=== PATIENT | male | born 1960 | race Caucasian/White ===

== ENCOUNTER 2022-01-26 10:43 | Inpatient (IN) | payer OTHER ==
[2022-01-26] MEDS ORDERED: ACETAMINOPHEN 325 MG TABLET (FP) PO PRN (11:11)
[2022-01-26] MEDS ORDERED: MAGNESIUM HYDROX 2400MG/30ML ORAL SUSPENSION 30 ML CUP PO PRN (11:11)
[2022-01-26] MEDS ORDERED: ONDANSETRON *ODT* 4 MG TABLET SL PRN (11:11)
[2022-01-26] MEDS ORDERED: DICYCLOMINE HCL 10 MG CAPSULE PO PRN (11:11)
[2022-01-26] MEDS ORDERED: METHOCARBAMOL 500 MG TABLET PO PRN (11:11)
[2022-01-26] MEDS ORDERED: diazePAM 5 MG TABLET PO PRN (11:11)
[2022-01-26] MEDS ORDERED: LOPERAMIDE HCL 2 MG CAPSULE PO PRN (11:11)
[2022-01-26] MEDS ORDERED: BENZOCAINE/MENTHOL (CHLORASEPTIC ) LOZENGE MM PRN (11:11)
[2022-01-26] MEDS ORDERED: MAGNESIUM CITRATE 300 ML BOTTLE PO PRN (11:11)
[2022-01-26] MEDS ORDERED: NICOTINE 10 MG CARTRIDGE (INHALER) IH PRN (11:11)
[2022-01-26] MEDS ORDERED: MAG HYDROX/AL HYDROX/SIMETH 30 ML UNIT-DOSE CUP PO PRN (11:11)
[2022-01-26] MEDS ORDERED: BISMUTH SUBSALICYLATE 262 MG/15 ML BTL PO PRN (11:11)
[2022-01-26 12:03] VITALS: BMI 21.0
[2022-01-26] MEDS ORDERED: MULTIVITAMINS (DAILY MVI) TABLET (FP) PO SCH (13:45)
[2022-01-26] MEDS: NICOTINE 7 MG/24 HOURS TOPICAL PATCH TD SCH (14:05)
[2022-01-26] MEDS: PRENATAL VITAMINS W/ FOLIC ACID TABLET (FP) PO SCH (14:05)
[2022-01-26] MEDS: hydrOXYzine PAMOATE 25 MG CAPSULE (FP) PO SCH ×3 (14:07→22:22)
[2022-01-26] MEDS: DIVALPROEX SODIUM 500 MG TABLET E.C. PO SCH ×4 (14:42→23:32)
[2022-01-26] MEDS: CLOPIDOGREL BISULFATE 75 MG TABLET (FP) PO SCH (14:42)
[2022-01-26] MEDS: ASPIRIN 81 MG CHEWABLE TABLETS PO SCH (14:42)
[2022-01-26] MEDS: METOPROLOL TARTRATE 25 MG TABLET (FP) PO SCH ×2 (14:42→22:18)
[2022-01-26 15:02] LABS: HEMATOCRIT 33.9 % (35.4-49); HEMOGLOBIN 11.8 GM/dL (11.7-16.9); MCH 37.4 pg (25.7-33.7); MCHC 34.7 g/dl (32.0-35.9); MEAN CELL VOLUME 107.7 fl (80-96); MEAN PLT VOLUME 7.9 fl (7.5-11.1); PLATELET COUNT 126 10^3/uL (134-434); RBC 3.15 M/mm3 (4.00-5.60); RDW 12.8 % (11.9-15.9); WHITE BLOOD COUNT 3.5 K/mm3 (4.0-10.0)
[2022-01-26 15:29] LABS: CREATININE 1.2 mg/dL (0.55-1.3)
[2022-01-26 15:30] LABS: BILIRUBIN,TOTAL 0.8 mg/dL (0.2-1)
[2022-01-26 15:31] LABS: TOT PROT 6.3 g/dl (6.4-8.2)
[2022-01-26 15:32] LABS: ALBUMIN 3.2 g/dl (3.4-5.0); BLOOD UREA NITROGEN 18.4 mg/dL (7-18); CALCIUM 9.1 mg/dL (8.5-10.1)
[2022-01-26] MEDS: FOLIC ACID 1 MG TABLET (FP) PO SCH (15:57)
[2022-01-26] MEDS: LOSARTAN POTASSIUM 50 MG TABLET PO SCH (15:57)
[2022-01-26] MEDS: THIAMINE HCL 100 MG TABLET (FP) PO SCH ×2 (15:58→22:21)
[2022-01-26] MEDS: MEMANTINE HCL 5 MG TABLET (UD) PO SCH ×2 (16:03→22:17)
[2022-01-26] MEDS: diazePAM 5 MG TABLET PO SCH ×2 (18:31→22:18)
[2022-01-26] MEDS ORDERED: MELATONIN 5 MG TABLETS PO SCH (22:00)
[2022-01-26] MEDS ORDERED: THIAMINE HCL 100 MG TABLET (FP) PO SCH (22:00)
[2022-01-26] MEDS: ATORVASTATIN CA 20 MG TABLET (FP) PO SCH (22:18)
[2022-01-26] MEDS: MIRTAZAPINE 15 MG TABLET (FP) PO SCH (22:18)
[2022-01-26] MEDS: DONEPEZIL HCL 10 MG TABLET (FP) PO SCH (22:19)
[2022-01-27] MEDS: hydrOXYzine PAMOATE 25 MG CAPSULE (FP) PO SCH (05:01)
[2022-01-27] MEDS: diazePAM 5 MG TABLET PO SCH ×4 (05:01→22:46)
[2022-01-27] MEDS: ASPIRIN 81 MG CHEWABLE TABLETS PO SCH (10:07)
[2022-01-27] MEDS: FOLIC ACID 1 MG TABLET (FP) PO SCH (10:07)
[2022-01-27] MEDS: PRENATAL VITAMINS W/ FOLIC ACID TABLET (FP) PO SCH (10:07)
[2022-01-27] MEDS: DIVALPROEX SODIUM 500 MG TABLET E.C. PO SCH ×3 (10:07→22:36)
[2022-01-27] MEDS: MEMANTINE HCL 5 MG TABLET (UD) PO SCH ×2 (10:07→22:37)
[2022-01-27] MEDS: CLOPIDOGREL BISULFATE 75 MG TABLET (FP) PO SCH (10:07)
[2022-01-27] MEDS: LOSARTAN POTASSIUM 50 MG TABLET PO SCH (10:07)
[2022-01-27] MEDS: METOPROLOL TARTRATE 25 MG TABLET (FP) PO SCH ×2 (10:07→22:37)
[2022-01-27] MEDS: ACETAMINOPHEN 325 MG TABLET (FP) PO PRN (10:09)
[2022-01-27] MEDS: NICOTINE 7 MG/24 HOURS TOPICAL PATCH TD SCH (10:10)
[2022-01-27] MEDS: THIAMINE HCL 100 MG TABLET (FP) PO SCH ×2 (10:10→22:37)
[2022-01-27] MEDS: DONEPEZIL HCL 10 MG TABLET (FP) PO SCH (22:36)
[2022-01-27] MEDS: ATORVASTATIN CA 20 MG TABLET (FP) PO SCH (22:37)
[2022-01-27] MEDS: MIRTAZAPINE 15 MG TABLET (FP) PO SCH (22:37)
[2022-01-28] MEDS: diazePAM 5 MG TABLET PO SCH ×3 (05:16→22:39)
[2022-01-28] MEDS: ACETAMINOPHEN 325 MG TABLET (FP) PO PRN ×2 (05:17→15:37)
[2022-01-28] MEDS: PRENATAL VITAMINS W/ FOLIC ACID TABLET (FP) PO SCH (10:13)
[2022-01-28] MEDS: DIVALPROEX SODIUM 500 MG TABLET E.C. PO SCH ×2 (10:13→22:10)
[2022-01-28] MEDS: MEMANTINE HCL 5 MG TABLET (UD) PO SCH ×2 (10:13→22:10)
[2022-01-28] MEDS: CLOPIDOGREL BISULFATE 75 MG TABLET (FP) PO SCH (10:13)
[2022-01-28] MEDS: FOLIC ACID 1 MG TABLET (FP) PO SCH (10:13)
[2022-01-28] MEDS: ASPIRIN 81 MG CHEWABLE TABLETS PO SCH (10:13)
[2022-01-28] MEDS: LOSARTAN POTASSIUM 50 MG TABLET PO SCH (10:13)
[2022-01-28] MEDS: THIAMINE HCL 100 MG TABLET (FP) PO SCH ×2 (10:14→22:10)
[2022-01-28] MEDS: NICOTINE 7 MG/24 HOURS TOPICAL PATCH TD SCH (10:14)
[2022-01-28] MEDS: METOPROLOL TARTRATE 25 MG TABLET (FP) PO SCH ×2 (10:15→22:11)
[2022-01-28 10:40] LABS: BLOOD UREA NITROGEN 18.3 mg/dL (7-18); CALCIUM 8.9 mg/dL (8.5-10.1)
[2022-01-28 10:44] LABS: CREATININE 0.8 mg/dL (0.55-1.3)
[2022-01-28] MEDS: IBUPROFEN 400 MG TABLET (FP) PO PRN (16:55)
[2022-01-28] MEDS: DONEPEZIL HCL 5 MG TABLET (FP) PO SCH (22:10)
[2022-01-28] MEDS: MIRTAZAPINE 15 MG TABLET (FP) PO SCH (22:10)
[2022-01-28] MEDS: ATORVASTATIN CA 20 MG TABLET (FP) PO SCH (22:10)
[2022-01-29 00:11] LABS: SARS-CoV-2 NAA Not Detected (Not Detected)
[2022-01-29] MEDS: diazePAM 5 MG TABLET PO SCH ×2 (05:11→17:48)
[2022-01-29] MEDS: DIVALPROEX SODIUM 500 MG TABLET E.C. PO SCH ×2 (10:11→21:27)
[2022-01-29] MEDS: LOSARTAN POTASSIUM 50 MG TABLET PO SCH (10:11)
[2022-01-29] MEDS: ASPIRIN 81 MG CHEWABLE TABLETS PO SCH (10:11)
[2022-01-29] MEDS: PRENATAL VITAMINS W/ FOLIC ACID TABLET (FP) PO SCH (10:11)
[2022-01-29] MEDS: METOPROLOL TARTRATE 25 MG TABLET (FP) PO SCH ×2 (10:12→21:27)
[2022-01-29] MEDS: CLOPIDOGREL BISULFATE 75 MG TABLET (FP) PO SCH (10:12)
[2022-01-29] MEDS: MEMANTINE HCL 5 MG TABLET (UD) PO SCH ×2 (10:12→21:27)
[2022-01-29] MEDS: FOLIC ACID 1 MG TABLET (FP) PO SCH (10:12)
[2022-01-29] MEDS: THIAMINE HCL 100 MG TABLET (FP) PO SCH ×2 (10:13→21:27)
[2022-01-29] MEDS: NICOTINE 7 MG/24 HOURS TOPICAL PATCH TD SCH (10:13)
[2022-01-29] MEDS: ACETAMINOPHEN 325 MG TABLET (FP) PO PRN (13:03)
[2022-01-29] MEDS: IBUPROFEN 400 MG TABLET (FP) PO PRN (17:51)
[2022-01-29] MEDS: DONEPEZIL HCL 5 MG TABLET (FP) PO SCH (21:27)
[2022-01-29] MEDS: MIRTAZAPINE 15 MG TABLET (FP) PO SCH (21:27)
[2022-01-29] MEDS: ATORVASTATIN CA 20 MG TABLET (FP) PO SCH (21:27)
[2022-01-30] MEDS ORDERED: diazePAM 5 MG TABLET PO ONE (06:00)
[2022-01-30] MEDS: DIVALPROEX SODIUM 500 MG TABLET E.C. PO SCH ×2 (10:28→21:30)
[2022-01-30] MEDS: METOPROLOL TARTRATE 25 MG TABLET (FP) PO SCH ×2 (10:28→21:30)
[2022-01-30] MEDS: CLOPIDOGREL BISULFATE 75 MG TABLET (FP) PO SCH (10:28)
[2022-01-30] MEDS: LOSARTAN POTASSIUM 50 MG TABLET PO SCH (10:28)
[2022-01-30] MEDS: ASPIRIN 81 MG CHEWABLE TABLETS PO SCH (10:28)
[2022-01-30] MEDS: PRENATAL VITAMINS W/ FOLIC ACID TABLET (FP) PO SCH (10:29)
[2022-01-30] MEDS: NICOTINE 7 MG/24 HOURS TOPICAL PATCH TD SCH (10:29)
[2022-01-30] MEDS: MEMANTINE HCL 5 MG TABLET (UD) PO SCH ×2 (10:29→21:30)
[2022-01-30] MEDS: FOLIC ACID 1 MG TABLET (FP) PO SCH (10:29)
[2022-01-30] MEDS: THIAMINE HCL 100 MG TABLET (FP) PO SCH ×2 (10:30→21:30)
[2022-01-30] MEDS ORDERED: LOPERAMIDE HCL 2 MG CAPSULE PO ONE (11:50)
[2022-01-30] MEDS: DONEPEZIL HCL 5 MG TABLET (FP) PO SCH (21:30)
[2022-01-30] MEDS: ATORVASTATIN CA 20 MG TABLET (FP) PO SCH (21:30)
[2022-01-30] MEDS: MIRTAZAPINE 15 MG TABLET (FP) PO SCH (21:30)
[2022-01-31 05:56] VITALS: TEMP 96.8
[2022-01-31 09:15] VITALS: BP 124/61; PULSE 68
[2022-01-31] MEDS: MEMANTINE HCL 5 MG TABLET (UD) PO SCH (10:47)
[2022-01-31] MEDS: PRENATAL VITAMINS W/ FOLIC ACID TABLET (FP) PO SCH (10:47)
[2022-01-31] MEDS: FOLIC ACID 1 MG TABLET (FP) PO SCH (10:47)
[2022-01-31] MEDS: METOPROLOL TARTRATE 25 MG TABLET (FP) PO SCH (10:47)
[2022-01-31] MEDS: DIVALPROEX SODIUM 500 MG TABLET E.C. PO SCH (10:47)
[2022-01-31] MEDS: ASPIRIN 81 MG CHEWABLE TABLETS PO SCH (10:47)
[2022-01-31] MEDS: CLOPIDOGREL BISULFATE 75 MG TABLET (FP) PO SCH (10:47)
[2022-01-31] MEDS: NICOTINE 7 MG/24 HOURS TOPICAL PATCH TD SCH (10:48)
[2022-01-31] MEDS: LOSARTAN POTASSIUM 50 MG TABLET PO SCH (10:48)
[2022-01-31] MEDS: THIAMINE HCL 100 MG TABLET (FP) PO SCH (10:50)
== END 2022-01-31 11:50 | disposition home or self-care (01) | DRG 897 ==
LOC: YASAS 10:43 → Y6N 12:26
PROVIDERS: ADMIT Allergy & Immunology; ATTEND Surgery
PROC: HZ2ZZZZ Detoxification Services for Substance Abuse Treatment (ICD-10-PCS; principal; 2022-01-26)
DX: F10.230 Alcohol dependence with withdrawal, uncomplicated (principal); F01.50 Vascular dementia, unspecified severity, without behavioral disturbance, psychotic disturbance, mood disturbance, and anxiety; F31.9 Bipolar disorder, unspecified; G40.909 Epilepsy, unspecified, not intractable, without status epilepticus; E78.00 Pure hypercholesterolemia, unspecified; K21.9 Gastro-esophageal reflux disease without esophagitis; I10 Essential (primary) hypertension; Z88.0 Allergy status to penicillin
CPT/HCPCS: 36415; 80048; 80053; 83036; 85027; 86780; 87811; 93005; 93010; C9803-CS; U0003; U0005

== ENCOUNTER 2023-01-02 15:16 | Inpatient (IN) | payer OTHER ==
[2023-01-02] MEDS ORDERED: SODIUM CHLORIDE 0.9% 500 ML INFUS.BAG IV ONE (15:38)
[2023-01-02] MEDS ORDERED: ACETAMINOPHEN 1000 MG/100 ML BAG IVPB ONE (15:38)
[2023-01-02 15:42] VITALS: BMI 18.3
[2023-01-02] MEDS ORDERED: SODIUM CHLORIDE 1,837 ML IV ONE (15:43)
[2023-01-02] MEDS ORDERED: VANCOMYCIN 1 GM in D5W (PRE-DOCKED) 1,000 MG/250 ML (RESTRICTED TO ID ONLY IVPB ONE (15:45)
[2023-01-02] MEDS ORDERED: CEFEPIME HCL/D5W 2 GM/50 ML BAG IVPB ONE (15:45)
[2023-01-02] MEDS ORDERED: ACETAMINOPHEN INJECTION 100 ML IVPB ONE (16:23)
[2023-01-02] MEDS ORDERED: CEFEPIME 2 GM/100 ML BAG IVPB ONE (16:23)
[2023-01-02] MEDS ORDERED: PIPERACILLIN/TAZOB 4.5 GM 4.5 GM in DEXTROSE 5%-WATER 100 ML IVPB ONE (16:24)
[2023-01-02 17:49] LABS: VENOUS BASE EXCESS 1.3 mmol/L (-2-2); VENOUS O2 SATURATION 25.5 % (70-80); VENOUS PCO2 48.7 mmHg (38-52); VENOUS PH 7.36 (7.310-7.410)
[2023-01-02 17:51] LABS: BASO % 0.1 % (0-2.0); HEMATOCRIT 18.1 % (35.4-49); LYMPH % 6.6 % (8-40); MCH 31.1 pg (25.7-33.7); MCHC 33.6 g/dl (32.0-35.9); MEAN CELL VOLUME 92.7 fl (80-96); NEUT % 89.3 % (42.8-82.8); PLATELET COUNT 224 10^3/uL (134-434); RBC 1.95 M/mm3 (4.00-5.60); WHITE BLOOD COUNT 10.8 K/mm3 (4.0-10.0)
[2023-01-02 17:55] LABS: HEMOGLOBIN 6.1 GM/dL (11.7-16.9)
[2023-01-02 18:03] LABS: ACTIVATED PTT 32.6 SECONDS (25.2-36.5); INR 1.72 (0.83-1.09); PROTHROMBIN TIME (PATIENT) 19.8 SEC (9.7-13.0)
[2023-01-02 18:11] LABS: POTASSIUM 3.6 mmol/L (3.5-5.1)
[2023-01-02 18:17] LABS: CREATININE 0.5 mg/dL (0.55-1.3)
[2023-01-02 18:18] LABS: BILIRUBIN,TOTAL 0.2 mg/dL (0.2-1)
[2023-01-02 18:19] LABS: TOT PROT 6.7 g/dl (6.4-8.2)
[2023-01-02 18:22] LABS: LACTIC ACID 2.6 mmol/L (0.4-2.0)
[2023-01-02] MEDS ORDERED: ACETAMINOPHEN 650 MG/20.3 ML ORAL SOLUTION (CUPS) PO PRN (19:28)
[2023-01-02] MEDS ORDERED: ALBUTEROL SO4 2.5/IPRATROPIUM 0.5 INH SOL 3 ML VIAL.NEB. NEB PRN (19:38)
[2023-01-02] MEDS: QUEtiapine FUMARATE 100 MG TABLET (FP) PO SCH (23:40)
[2023-01-02] MEDS: METOPROLOL TARTRATE 25 MG TABLET (FP) PO SCH (23:40)
[2023-01-02] MEDS: MEMANTINE HCL 5 MG TABLET (UD) PO SCH (23:40)
[2023-01-02] MEDS: MIRTAZAPINE 15 MG TABLET (FP) PO SCH (23:40)
[2023-01-02] MEDS: ATORVASTATIN CA 20 MG TABLET (FP) PO SCH (23:40)
[2023-01-02] MEDS: DIVALPROEX SODIUM 500 MG TABLET E.C. PO SCH (23:51)
[2023-01-03] MEDS: PIPERACILLIN/TAZOB 3.375 GM 3.375 GM in DEXTROSE 5%-WATER - 50 ML IVPB SCH ×3 (02:24→15:12)
[2023-01-03 08:49] LABS: BASO % 0.2 % (0-2.0); HEMATOCRIT 19.3 % (35.4-49); LYMPH % 13.1 % (8-40); MCH 31.6 pg (25.7-33.7); MCHC 34.2 g/dl (32.0-35.9); MEAN CELL VOLUME 92.4 fl (80-96); MEAN PLT VOLUME 7.9 fl (7.5-11.1); MONO % 2.7 % (3.8-10.2); PLATELET COUNT 245 10^3/uL (134-434); RBC 2.09 M/mm3 (4.00-5.60); RDW 15.4 % (11.9-15.9); WHITE BLOOD COUNT 8.1 K/mm3 (4.0-10.0)
[2023-01-03 08:58] LABS: CHLORIDE 110 mmol/L (98-107); POTASSIUM 3.9 mmol/L (3.5-5.1); SODIUM 141 mmol/L (136-145)
[2023-01-03 09:02] LABS: BLOOD UREA NITROGEN 17.3 mg/dL (7-18); CALCIUM 7.9 mg/dL (8.5-10.1)
[2023-01-03 09:03] LABS: ANION GAP 7 MMOL/L (8-16); CO2 24 mmol/L (21-32)
[2023-01-03 09:05] LABS: CREATININE 0.4 mg/dL (0.55-1.3); SGOT/AST 23 U/L (15-37); SGPT/ALT 11 U/L (13-61)
[2023-01-03 09:07] LABS: BILIRUBIN,TOTAL 0.7 mg/dL (0.2-1); TOT PROT 7.3 g/dl (6.4-8.2)
[2023-01-03 09:08] LABS: ALK PHOS 57 U/L (45-117)
[2023-01-03 09:14] LABS: GLUCOSE,RANDOM 48 mg/dL (74-106)
[2023-01-03 09:15] LABS: HEMOGLOBIN 6.6 GM/dL (11.7-16.9)
[2023-01-03] MEDS: DIVALPROEX SODIUM 500 MG TABLET E.C. PO SCH ×2 (09:32→23:03)
[2023-01-03] MEDS: MEMANTINE HCL 5 MG TABLET (UD) PO SCH ×2 (09:32→23:03)
[2023-01-03] MEDS: METOPROLOL TARTRATE 25 MG TABLET (FP) PO SCH ×2 (09:32→23:03)
[2023-01-03] MEDS: LOSARTAN POTASSIUM 50 MG TABLET PO SCH (09:32)
[2023-01-03] MEDS ORDERED: FUROSEMIDE 40 MG/4 ML INJECTABLE VIAL IVPUSH SCH (10:39)
[2023-01-03 13:33] LABS: TOTAL IRON BINDING CAPACITY 72 ug/dL (250-450)
[2023-01-03 13:34] LABS: IRON SERUM 21 ug/dL (50-175)
[2023-01-03] MEDS: CEFTRIAXONE 2 GM in DEXTROSE 5%-WATER 100 ML IVPB SCH (16:01)
[2023-01-03] MEDS: AZITHROMYCIN IVPB 500 MG/250 ML BAG IVPB SCH (16:49)
[2023-01-03 22:10] LABS: EPI CELLS >36 /uL (0-25.1); HYALINE CASTS 8 /uL (0-3.1); URINE APPEARANCE CLOUDY; URINE BILIRUBIN NEGATIVE (NEGATIVE); URINE COLOR YELLOW; URINE GLUCOSE (UA) NEGATIVE (NEGATIVE); URINE KETONE NEGATIVE (NEGATIVE); URINE LEUK ESTERASE NEGATIVE (NEGATIVE); URINE NITRITE NEGATIVE (NEGATIVE); URINE PROTEIN 1+ (NEGATIVE); URINE UROBILINOGEN 0.2 mg/dL (0.2-1.0)
[2023-01-03] MEDS: MIRTAZAPINE 15 MG TABLET (FP) PO SCH (23:03)
[2023-01-03] MEDS: ATORVASTATIN CA 20 MG TABLET (FP) PO SCH (23:03)
[2023-01-03] MEDS: QUEtiapine FUMARATE 100 MG TABLET (FP) PO SCH (23:03)
[2023-01-03 23:43] LABS: URINE RBC 69.6 /uL (0-23.9)
[2023-01-03 23:44] LABS: URINE BACTERIA 9.9 /uL (0-1359); URINE WBC 111.1 /uL (0-25.8)
[2023-01-04] MEDS: CEFTRIAXONE 2 GM in DEXTROSE 5%-WATER 100 ML IVPB SCH (09:58)
[2023-01-04] MEDS: METOPROLOL TARTRATE 25 MG TABLET (FP) PO SCH ×3 (10:03→22:52)
[2023-01-04] MEDS: DIVALPROEX SODIUM 500 MG TABLET E.C. PO SCH ×2 (10:03→22:50)
[2023-01-04] MEDS: AZITHROMYCIN IVPB 500 MG/250 ML BAG IVPB SCH (10:03)
[2023-01-04] MEDS: PANTOPRAZOLE 40 MG TABLET PO SCH (10:03)
[2023-01-04] MEDS: LOSARTAN POTASSIUM 50 MG TABLET PO SCH (10:03)
[2023-01-04] MEDS: MEMANTINE HCL 5 MG TABLET (UD) PO SCH ×2 (10:03→22:50)
[2023-01-04] MEDS: CLINDAMYCIN 600MG PREMIX IVPB 600 MG/50 ML BAG IVPB SCH (17:58)
[2023-01-04] MEDS: QUEtiapine FUMARATE 100 MG TABLET (FP) PO SCH (22:50)
[2023-01-04] MEDS: MIRTAZAPINE 15 MG TABLET (FP) PO SCH (22:50)
[2023-01-04] MEDS: ATORVASTATIN CA 20 MG TABLET (FP) PO SCH (22:51)
[2023-01-05] MEDS: CLINDAMYCIN 600MG PREMIX IVPB 600 MG/50 ML BAG IVPB SCH ×3 (01:06→17:00)
[2023-01-05 08:06] LABS: POTASSIUM 3.5 mmol/L (3.5-5.1)
[2023-01-05 08:12] LABS: BASO % 0.1 % (0-2.0); CALCIUM 8.1 mg/dL (8.5-10.1); HEMOGLOBIN 8.7 GM/dL (11.7-16.9); LYMPH % 10.9 % (8-40); MCHC 34.6 g/dl (32.0-35.9); MEAN CELL VOLUME 89.6 fl (80-96); MEAN PLT VOLUME 7.3 fl (7.5-11.1); PLATELET COUNT 186 10^3/uL (134-434); RBC 2.79 M/mm3 (4.00-5.60); RDW 15.5 % (11.9-15.9); WHITE BLOOD COUNT 9.4 K/mm3 (4.0-10.0)
[2023-01-05 08:17] LABS: CREATININE 1.9 mg/dL (0.55-1.3)
[2023-01-05 08:19] LABS: TOT PROT 6.4 g/dl (6.4-8.2)
[2023-01-05 08:22] LABS: BILIRUBIN,TOTAL 0.3 mg/dL (0.2-1)
[2023-01-05 08:59] LABS: ALBUMIN 1.5 g/dl (3.4-5.0); BLOOD UREA NITROGEN 43.2 mg/dL (7-18)
[2023-01-05] MEDS: CEFTRIAXONE 2 GM in DEXTROSE 5%-WATER 100 ML IVPB SCH (09:15)
[2023-01-05 10:09] LABS: MYCOPLASMA PNEUMONIAE,IG G AB <100 U/mL (0-99); MYCOPLASMA PNEUMONIAE,IGM AB <770 U/mL (0-769)
[2023-01-05] MEDS: PANTOPRAZOLE 40 MG TABLET PO SCH (10:14)
[2023-01-05] MEDS: LOSARTAN POTASSIUM 50 MG TABLET PO SCH (10:14)
[2023-01-05] MEDS: METOPROLOL TARTRATE 25 MG TABLET (FP) PO SCH ×2 (10:14→21:34)
[2023-01-05] MEDS: DIVALPROEX SODIUM 500 MG TABLET E.C. PO SCH ×2 (11:45→21:33)
[2023-01-05] MEDS: MEMANTINE HCL 5 MG TABLET (UD) PO SCH ×2 (11:46→21:34)
[2023-01-05] MEDS: ACETYLCYSTEINE 20% 200MG/ML 4 ML VIAL *FOR ORAL / INH USE ONLY NEB SCH ×2 (15:17→20:22)
[2023-01-05] MEDS: ALBUTEROL SO4 0.083% IH SOL 2.5 MG/3 ML VIAL.NEB. NEB SCH ×2 (15:18→20:22)
[2023-01-05] MEDS: ATORVASTATIN CA 20 MG TABLET (FP) PO SCH (21:33)
[2023-01-05] MEDS: QUEtiapine FUMARATE 100 MG TABLET (FP) PO SCH (21:35)
[2023-01-05] MEDS: MIRTAZAPINE 15 MG TABLET (FP) PO SCH (21:35)
[2023-01-06] MEDS: CLINDAMYCIN 600MG PREMIX IVPB 600 MG/50 ML BAG IVPB SCH ×3 (01:40→18:14)
[2023-01-06 07:59] LABS: CHLORIDE 111 mmol/L (98-107); SODIUM 142 mmol/L (136-145)
[2023-01-06 08:09] LABS: CALCIUM 7.9 mg/dL (8.5-10.1)
[2023-01-06 08:10] LABS: CO2 26 mmol/L (21-32); GLUCOSE,RANDOM 81 mg/dL (74-106)
[2023-01-06 08:12] LABS: SGPT/ALT 7 U/L (13-61)
[2023-01-06 08:13] LABS: CREATININE 0.5 mg/dL (0.55-1.3); SGOT/AST 13 U/L (15-37)
[2023-01-06 08:14] LABS: BASO % 0.1 % (0-2.0); BILIRUBIN,TOTAL 0.2 mg/dL (0.2-1); HEMOGLOBIN 7.6 GM/dL (11.7-16.9); LYMPH % 12.4 % (8-40); MCHC 34.4 g/dl (32.0-35.9); MEAN PLT VOLUME 7.4 fl (7.5-11.1); MONO % 5.2 % (3.8-10.2); NEUT % 82.3 % (42.8-82.8); PLATELET COUNT 169 10^3/uL (134-434); RBC 2.44 M/mm3 (4.00-5.60); RDW 15.3 % (11.9-15.9); TOT PROT 6.2 g/dl (6.4-8.2); WHITE BLOOD COUNT 6.4 K/mm3 (4.0-10.0)
[2023-01-06 08:15] LABS: ALK PHOS 44 U/L (45-117)
[2023-01-06 08:18] LABS: ALBUMIN 0.9 g/dl (3.4-5.0); ANION GAP 5 MMOL/L (8-16); BLOOD UREA NITROGEN 13.1 mg/dL (7-18); POTASSIUM 2.9 mmol/L (3.5-5.1)
[2023-01-06] MEDS: ACETYLCYSTEINE 20% 200MG/ML 4 ML VIAL *FOR ORAL / INH USE ONLY NEB SCH ×4 (09:35→20:40)
[2023-01-06] MEDS: ALBUTEROL SO4 0.083% IH SOL 2.5 MG/3 ML VIAL.NEB. NEB SCH ×4 (09:36→20:40)
[2023-01-06] MEDS: CEFTRIAXONE 2 GM in DEXTROSE 5%-WATER 100 ML IVPB SCH (09:59)
[2023-01-06] MEDS: AMINO ACIDS/PROTEIN HYDROLYS 30 ML LIQUID.PKT PO SCH ×2 (09:59→17:15)
[2023-01-06] MEDS: METOPROLOL TARTRATE 25 MG TABLET (FP) PO SCH ×2 (10:00→21:54)
[2023-01-06] MEDS: PANTOPRAZOLE 40 MG TABLET PO SCH (10:00)
[2023-01-06] MEDS: LOSARTAN POTASSIUM 50 MG TABLET PO SCH (10:00)
[2023-01-06] MEDS: MEMANTINE HCL 5 MG TABLET (UD) PO SCH ×2 (10:00→21:54)
[2023-01-06] MEDS: DIVALPROEX SODIUM 500 MG TABLET E.C. PO SCH ×2 (10:00→21:54)
[2023-01-06] MEDS: KCL 10 MEQ IVPB 10 MEQ/100 ML INFUS.BAG IVPB SCH ×2 (10:48→14:04)
[2023-01-06] MEDS ORDERED: KCL 10 MEQ IVPB 10 MEQ/100 ML INFUS.BAG IVPB SCH (12:15)
[2023-01-06] MEDS ORDERED: POTASSIUM CHLORIDE ORAL LIQUID 20 MEQ/15 ML PO ONE (13:07)
[2023-01-06] MEDS ORDERED: POTASSIUM CHLORIDE TABS 20 MEQ TABLET.ER (FP) PO ONE (13:55)
[2023-01-06] MEDS: ATORVASTATIN CA 20 MG TABLET (FP) PO SCH (21:54)
[2023-01-06] MEDS: QUEtiapine FUMARATE 100 MG TABLET (FP) PO SCH (21:54)
[2023-01-06] MEDS: MIRTAZAPINE 15 MG TABLET (FP) PO SCH (21:54)
[2023-01-07] MEDS: CLINDAMYCIN 600MG PREMIX IVPB 600 MG/50 ML BAG IVPB SCH ×3 (01:48→17:18)
[2023-01-07 07:37] LABS: HEMOGLOBIN 8.6 GM/dL (11.7-16.9); MCH 31.3 pg (25.7-33.7); MCHC 34.4 g/dl (32.0-35.9); MEAN CELL VOLUME 90.9 fl (80-96); MEAN PLT VOLUME 8.2 fl (7.5-11.1); PLATELET COUNT 165 10^3/uL (134-434); RBC 2.75 M/mm3 (4.00-5.60); RDW 15.1 % (11.9-15.9); WHITE BLOOD COUNT 4.4 K/mm3 (4.0-10.0)
[2023-01-07 07:58] LABS: POTASSIUM 4.5 mmol/L (3.5-5.1)
[2023-01-07 08:06] LABS: ALBUMIN 1.1 g/dl (3.4-5.0); BLOOD UREA NITROGEN 15.1 mg/dL (7-18); CALCIUM 8.1 mg/dL (8.5-10.1); MAGNESIUM 1.6 mg/dL (1.8-2.4)
[2023-01-07 08:09] LABS: CREATININE 0.4 mg/dL (0.55-1.3)
[2023-01-07 08:11] LABS: BILIRUBIN,TOTAL 0.4 mg/dL (0.2-1)
[2023-01-07] MEDS: ACETYLCYSTEINE 20% 200MG/ML 4 ML VIAL *FOR ORAL / INH USE ONLY NEB SCH ×4 (08:45→20:41)
[2023-01-07] MEDS: ALBUTEROL SO4 0.083% IH SOL 2.5 MG/3 ML VIAL.NEB. NEB SCH ×4 (08:45→20:41)
[2023-01-07 10:03] LABS: ANISOCYTOSIS 0; MACROCYTOSIS 0
[2023-01-07] MEDS: CEFTRIAXONE 2 GM in DEXTROSE 5%-WATER 100 ML IVPB SCH (10:04)
[2023-01-07] MEDS: AMINO ACIDS/PROTEIN HYDROLYS 30 ML LIQUID.PKT PO SCH ×2 (10:04→17:18)
[2023-01-07] MEDS: METOPROLOL TARTRATE 25 MG TABLET (FP) PO SCH ×2 (10:05→21:47)
[2023-01-07] MEDS: LOSARTAN POTASSIUM 50 MG TABLET PO SCH (10:05)
[2023-01-07] MEDS: PANTOPRAZOLE 40 MG TABLET PO SCH (10:05)
[2023-01-07] MEDS: MEMANTINE HCL 5 MG TABLET (UD) PO SCH ×2 (10:06→21:47)
[2023-01-07] MEDS: DIVALPROEX SODIUM 500 MG TABLET E.C. PO SCH ×2 (10:06→21:46)
[2023-01-07] MEDS ORDERED: MAGNESIUM 2GM/50ML STERILE WATER IVPB IVPB ONE (11:18)
[2023-01-07] MEDS ORDERED: FAT EMULSION/OLIVE/SOY (CLINOLIPID) 250 ML EMULSION IV SCH (11:21)
[2023-01-07] MEDS: AMINO ACIDS 4.25%/D5W 1,000 ML IV SCH (14:05)
[2023-01-07] MEDS: FAT EMULSION/OLIVE/SOY/PHOSPHO 250 ML IV SCH (21:46)
[2023-01-07] MEDS: ATORVASTATIN CA 20 MG TABLET (FP) PO SCH (21:46)
[2023-01-07] MEDS: MAGNESIUM OXIDE 400 MG TABLET (FP) PO SCH (21:47)
[2023-01-07] MEDS: MIRTAZAPINE 15 MG TABLET (FP) PO SCH (21:47)
[2023-01-07] MEDS: QUEtiapine FUMARATE 100 MG TABLET (FP) PO SCH (21:48)
[2023-01-08] MEDS: CLINDAMYCIN 600MG PREMIX IVPB 600 MG/50 ML BAG IVPB SCH ×3 (02:04→17:20)
[2023-01-08 07:38] LABS: BASO % 0.1 % (0-2.0); EOS % 0.1 % (0-4.5); HEMATOCRIT 19.9 % (35.4-49); LYMPH % 13.8 % (8-40); MCH 31.3 pg (25.7-33.7); MCHC 34.9 g/dl (32.0-35.9); MEAN CELL VOLUME 89.5 fl (80-96); MEAN PLT VOLUME 7.7 fl (7.5-11.1); MONO % 6.5 % (3.8-10.2); NEUT % 79.5 % (42.8-82.8); PLATELET COUNT 147 10^3/uL (134-434); RBC 2.23 M/mm3 (4.00-5.60); RDW 15.2 % (11.9-15.9)
[2023-01-08 07:47] LABS: POTASSIUM 3.3 mmol/L (3.5-5.1)
[2023-01-08 07:50] LABS: ALBUMIN 0.9 g/dl (3.4-5.0); CALCIUM 7.5 mg/dL (8.5-10.1)
[2023-01-08 07:51] LABS: BLOOD UREA NITROGEN 13.9 mg/dL (7-18); MAGNESIUM 1.6 mg/dL (1.8-2.4)
[2023-01-08 07:54] LABS: CREATININE 0.4 mg/dL (0.55-1.3)
[2023-01-08] MEDS: ALBUTEROL SO4 0.083% IH SOL 2.5 MG/3 ML VIAL.NEB. NEB SCH ×4 (07:55→20:05)
[2023-01-08] MEDS: ACETYLCYSTEINE 20% 200MG/ML 4 ML VIAL *FOR ORAL / INH USE ONLY NEB SCH ×4 (07:55→20:05)
[2023-01-08 07:56] LABS: BILIRUBIN,TOTAL 0.2 mg/dL (0.2-1); TOT PROT 6.4 g/dl (6.4-8.2)
[2023-01-08] MEDS: AMINO ACIDS/PROTEIN HYDROLYS 30 ML LIQUID.PKT PO SCH ×2 (09:06→17:20)
[2023-01-08] MEDS: CEFTRIAXONE 2 GM in DEXTROSE 5%-WATER 100 ML IVPB SCH (09:08)
[2023-01-08] MEDS: MEMANTINE HCL 5 MG TABLET (UD) PO SCH ×2 (09:09→21:41)
[2023-01-08] MEDS: DIVALPROEX SODIUM 500 MG TABLET E.C. PO SCH ×2 (09:09→21:40)
[2023-01-08] MEDS: MAGNESIUM OXIDE 400 MG TABLET (FP) PO SCH ×2 (09:09→21:41)
[2023-01-08] MEDS: LOSARTAN POTASSIUM 50 MG TABLET PO SCH (09:10)
[2023-01-08] MEDS: METOPROLOL TARTRATE 25 MG TABLET (FP) PO SCH ×2 (09:10→21:41)
[2023-01-08] MEDS: PANTOPRAZOLE 40 MG TABLET PO SCH (09:10)
[2023-01-08] MEDS: KCL 10 MEQ IVPB 10 MEQ/100 ML INFUS.BAG IVPB SCH ×2 (10:42→10:43)
[2023-01-08] MEDS: AMINO ACIDS 4.25%/D5W 1,000 ML IV SCH (19:25)
[2023-01-08] MEDS: FAT EMULSION/OLIVE/SOY/PHOSPHO 250 ML IV SCH (21:39)
[2023-01-08] MEDS: ATORVASTATIN CA 20 MG TABLET (FP) PO SCH (21:41)
[2023-01-08] MEDS: MIRTAZAPINE 15 MG TABLET (FP) PO SCH (21:42)
[2023-01-08] MEDS: QUEtiapine FUMARATE 100 MG TABLET (FP) PO SCH (21:42)
[2023-01-09] MEDS: CLINDAMYCIN 600MG PREMIX IVPB 600 MG/50 ML BAG IVPB SCH ×3 (01:22→17:41)
[2023-01-09] MEDS: ALBUTEROL SO4 0.083% IH SOL 2.5 MG/3 ML VIAL.NEB. NEB SCH ×4 (07:45→19:55)
[2023-01-09] MEDS: ACETYLCYSTEINE 20% 200MG/ML 4 ML VIAL *FOR ORAL / INH USE ONLY NEB SCH ×4 (07:45→19:55)
[2023-01-09 07:50] LABS: BASO % 0.2 % (0-2.0); EOS % 0.2 % (0-4.5); HEMATOCRIT 19.9 % (35.4-49); HEMOGLOBIN 7.2 GM/dL (11.7-16.9); LYMPH % 13.4 % (8-40); MCH 32.3 pg (25.7-33.7); MCHC 36.3 g/dl (32.0-35.9); MEAN PLT VOLUME 7.7 fl (7.5-11.1); MONO % 5.3 % (3.8-10.2); NEUT % 80.9 % (42.8-82.8); PLATELET COUNT 150 10^3/uL (134-434); RBC 2.23 M/mm3 (4.00-5.60); RDW 15.2 % (11.9-15.9); WHITE BLOOD COUNT 5.2 K/mm3 (4.0-10.0)
[2023-01-09 08:03] LABS: POTASSIUM 3.2 mmol/L (3.5-5.1)
[2023-01-09 08:09] LABS: CALCIUM 7.7 mg/dL (8.5-10.1)
[2023-01-09 08:10] LABS: BLOOD UREA NITROGEN 11.3 mg/dL (7-18)
[2023-01-09 08:12] LABS: CREATININE 0.4 mg/dL (0.55-1.3)
[2023-01-09 08:14] LABS: BILIRUBIN,TOTAL 0.4 mg/dL (0.2-1); TOT PROT 6.5 g/dl (6.4-8.2)
[2023-01-09] MEDS: AMINO ACIDS/PROTEIN HYDROLYS 30 ML LIQUID.PKT PO SCH ×2 (08:35→17:41)
[2023-01-09] MEDS: MEMANTINE HCL 5 MG TABLET (UD) PO SCH ×2 (09:39→22:12)
[2023-01-09] MEDS: METOPROLOL TARTRATE 25 MG TABLET (FP) PO SCH ×2 (09:40→22:13)
[2023-01-09] MEDS: LOSARTAN POTASSIUM 50 MG TABLET PO SCH (09:40)
[2023-01-09] MEDS: MAGNESIUM OXIDE 400 MG TABLET (FP) PO SCH ×2 (09:40→22:12)
[2023-01-09] MEDS: PANTOPRAZOLE 40 MG TABLET PO SCH (09:40)
[2023-01-09] MEDS: DIVALPROEX SODIUM 500 MG TABLET E.C. PO SCH ×2 (09:41→22:12)
[2023-01-09] MEDS: CEFTRIAXONE 2 GM in DEXTROSE 5%-WATER 100 ML IVPB SCH (10:01)
[2023-01-09] MEDS ORDERED: POTASSIUM CHLORIDE TABS 20 MEQ TABLET.ER (FP) PO ONE (12:25)
[2023-01-09] MEDS ORDERED: ALTEPLASE (CATHFLO) 2 MG/2 ML VIAL IX SCH (12:45)
[2023-01-09] MEDS: ALTEPLASE (CATHFLO) 2 MG/2 ML VIAL IX SCH ×2 (13:23→22:47)
[2023-01-09] MEDS: AMINO ACIDS 4.25%/D5W 1,000 ML IV SCH (17:42)
[2023-01-09] MEDS: FAT EMULSION/OLIVE/SOY/PHOSPHO 250 ML IV SCH (22:11)
[2023-01-09] MEDS: QUEtiapine FUMARATE 100 MG TABLET (FP) PO SCH (22:12)
[2023-01-09] MEDS: MIRTAZAPINE 15 MG TABLET (FP) PO SCH (22:12)
[2023-01-09] MEDS: ATORVASTATIN CA 20 MG TABLET (FP) PO SCH (22:13)
[2023-01-10] MEDS: CLINDAMYCIN 600MG PREMIX IVPB 600 MG/50 ML BAG IVPB SCH ×2 (01:20→09:04)
[2023-01-10] MEDS: AMINO ACIDS/PROTEIN HYDROLYS 30 ML LIQUID.PKT PO SCH ×2 (07:25→16:40)
[2023-01-10] MEDS: ACETYLCYSTEINE 20% 200MG/ML 4 ML VIAL *FOR ORAL / INH USE ONLY NEB SCH ×4 (08:00→20:05)
[2023-01-10] MEDS: ALBUTEROL SO4 0.083% IH SOL 2.5 MG/3 ML VIAL.NEB. NEB SCH ×4 (08:00→20:05)
[2023-01-10] MEDS: ACETAMINOPHEN 325 MG TABLET (FP) PO PRN (08:26)
[2023-01-10] MEDS: METOPROLOL TARTRATE 25 MG TABLET (FP) PO SCH ×2 (09:02→21:40)
[2023-01-10] MEDS: PANTOPRAZOLE 40 MG TABLET PO SCH (09:03)
[2023-01-10] MEDS: MAGNESIUM OXIDE 400 MG TABLET (FP) PO SCH ×2 (09:03→21:40)
[2023-01-10] MEDS: DIVALPROEX SODIUM 500 MG TABLET E.C. PO SCH ×2 (09:03→21:39)
[2023-01-10] MEDS: MEMANTINE HCL 5 MG TABLET (UD) PO SCH ×2 (09:04→21:40)
[2023-01-10] MEDS: CEFTRIAXONE 2 GM in DEXTROSE 5%-WATER 100 ML IVPB SCH (09:04)
[2023-01-10] MEDS: LOSARTAN POTASSIUM 50 MG TABLET PO SCH (09:05)
[2023-01-10] MEDS: ALTEPLASE (CATHFLO) 2 MG/2 ML VIAL IX SCH ×2 (10:19→22:06)
[2023-01-10] MEDS: AMINO ACIDS 4.25%/D5W 1,000 ML IV SCH (11:24)
[2023-01-10] MEDS: FAT EMULSION/OLIVE/SOY/PHOSPHO 250 ML IV SCH (21:35)
[2023-01-10] MEDS: ATORVASTATIN CA 20 MG TABLET (FP) PO SCH (21:39)
[2023-01-10] MEDS: QUEtiapine FUMARATE 100 MG TABLET (FP) PO SCH (21:40)
[2023-01-10] MEDS: MIRTAZAPINE 15 MG TABLET (FP) PO SCH (21:40)
[2023-01-11] MEDS: ALBUTEROL SO4 0.083% IH SOL 2.5 MG/3 ML VIAL.NEB. NEB SCH ×4 (07:21→21:00)
[2023-01-11] MEDS: ACETYLCYSTEINE 20% 200MG/ML 4 ML VIAL *FOR ORAL / INH USE ONLY NEB SCH (07:21)
[2023-01-11 07:52] LABS: HEMATOCRIT 19.1 % (35.4-49); MCH 32.1 pg (25.7-33.7); MCHC 36.1 g/dl (32.0-35.9); MEAN CELL VOLUME 88.9 fl (80-96); RBC 2.15 M/mm3 (4.00-5.60); WHITE BLOOD COUNT 5.7 K/mm3 (4.0-10.0)
[2023-01-11 07:53] LABS: BASO % 0.2 % (0-2.0); EOS % 0.1 % (0-4.5); LYMPH % 12.5 % (8-40); MEAN PLT VOLUME 7.9 fl (7.5-11.1); MONO % 7.6 % (3.8-10.2); NEUT % 79.6 % (42.8-82.8); PLATELET COUNT 140 10^3/uL (134-434)
[2023-01-11 08:03] LABS: HEMOGLOBIN 6.9 GM/dL (11.7-16.9)
[2023-01-11 08:10] LABS: CHLORIDE 104 mmol/L (98-107); SODIUM 138 mmol/L (136-145)
[2023-01-11 08:13] LABS: CALCIUM 8.4 mg/dL (8.5-10.1); GLUCOSE,RANDOM 85 mg/dL (74-106)
[2023-01-11 08:14] LABS: ALBUMIN 1.1 g/dl (3.4-5.0); BLOOD UREA NITROGEN 10.3 mg/dL (7-18); CO2 29 mmol/L (21-32)
[2023-01-11 08:16] LABS: SGOT/AST 10 U/L (15-37)
[2023-01-11 08:17] LABS: CREATININE 0.3 mg/dL (0.55-1.3); SGPT/ALT 7 U/L (13-61)
[2023-01-11 08:18] LABS: BILIRUBIN,TOTAL 0.2 mg/dL (0.2-1)
[2023-01-11 08:19] LABS: ALK PHOS 45 U/L (45-117); TOT PROT 7.1 g/dl (6.4-8.2)
[2023-01-11] MEDS: ACETAMINOPHEN 325 MG TABLET (FP) PO PRN (08:24)
[2023-01-11 08:33] LABS: ANION GAP 5 MMOL/L (8-16); POTASSIUM 2.8 mmol/L (3.5-5.1)
[2023-01-11] MEDS: LOSARTAN POTASSIUM 50 MG TABLET PO SCH (09:40)
[2023-01-11] MEDS: DIVALPROEX SODIUM 500 MG TABLET E.C. PO SCH ×2 (09:40→21:13)
[2023-01-11] MEDS: MAGNESIUM OXIDE 400 MG TABLET (FP) PO SCH ×2 (09:40→21:14)
[2023-01-11] MEDS: AMINO ACIDS/PROTEIN HYDROLYS 30 ML LIQUID.PKT PO SCH ×2 (09:40→17:41)
[2023-01-11] MEDS: MEMANTINE HCL 5 MG TABLET (UD) PO SCH ×2 (09:40→21:14)
[2023-01-11] MEDS: PANTOPRAZOLE 40 MG TABLET PO SCH (09:40)
[2023-01-11] MEDS: CEFTRIAXONE 2 GM in DEXTROSE 5%-WATER 100 ML IVPB SCH (09:41)
[2023-01-11] MEDS: METOPROLOL TARTRATE 25 MG TABLET (FP) PO SCH ×2 (09:41→21:14)
[2023-01-11] MEDS: KCL 10 MEQ IVPB 10 MEQ/100 ML INFUS.BAG IVPB SCH ×3 (10:02→11:43)
[2023-01-11] MEDS ORDERED: ACETYLCYSTEINE 20% 200MG/ML 30 ML VIAL *FOR ORAL / INH USE ONLY NEB SCH (11:17)
[2023-01-11] MEDS ORDERED: POTASSIUM CHLORIDE ORAL LIQUID 20 MEQ/15 ML PO ONE (11:45)
[2023-01-11] MEDS: AMINO ACIDS 4.25%/D5W 1,000 ML IV SCH (11:45)
[2023-01-11] MEDS: ACETYLCYSTEINE 20% 200MG/ML 10 ML VIAL *FOR ORAL / INH USE ONLY NEB SCH ×3 (11:55→21:00)
[2023-01-11] MEDS: ALTEPLASE (CATHFLO) 2 MG/2 ML VIAL IX SCH ×2 (12:13→21:10)
[2023-01-11] MEDS: FAT EMULSION/OLIVE/SOY/PHOSPHO 250 ML IV SCH (21:10)
[2023-01-11] MEDS: MIRTAZAPINE 15 MG TABLET (FP) PO SCH (21:14)
[2023-01-11] MEDS: QUEtiapine FUMARATE 100 MG TABLET (FP) PO SCH (21:14)
[2023-01-11] MEDS: ATORVASTATIN CA 20 MG TABLET (FP) PO SCH (21:14)
[2023-01-12] MEDS: ACETYLCYSTEINE 20% 200MG/ML 10 ML VIAL *FOR ORAL / INH USE ONLY NEB SCH ×4 (08:40→20:30)
[2023-01-12] MEDS: ALBUTEROL SO4 0.083% IH SOL 2.5 MG/3 ML VIAL.NEB. NEB SCH ×4 (08:40→20:30)
[2023-01-12 08:55] LABS: BASO % 0.2 % (0-2.0); EOS % 0.2 % (0-4.5); HEMATOCRIT 27.4 % (35.4-49); HEMOGLOBIN 9.9 GM/dL (11.7-16.9); LYMPH % 12.5 % (8-40); MCH 31.3 pg (25.7-33.7); MCHC 36.2 g/dl (32.0-35.9); MEAN CELL VOLUME 86.4 fl (80-96); MEAN PLT VOLUME 7.7 fl (7.5-11.1); MONO % 8.5 % (3.8-10.2); NEUT % 78.6 % (42.8-82.8); PLATELET COUNT 140 10^3/uL (134-434); RBC 3.17 M/mm3 (4.00-5.60); WHITE BLOOD COUNT 5.5 K/mm3 (4.0-10.0)
[2023-01-12 09:10] LABS: POTASSIUM 3.1 mmol/L (3.5-5.1)
[2023-01-12 09:12] LABS: ALBUMIN 1.2 g/dl (3.4-5.0); CALCIUM 8.4 mg/dL (8.5-10.1); MAGNESIUM 1.4 mg/dL (1.8-2.4)
[2023-01-12 09:13] LABS: BLOOD UREA NITROGEN 8.9 mg/dL (7-18)
[2023-01-12 09:15] LABS: CREATININE 0.3 mg/dL (0.55-1.3)
[2023-01-12 09:17] LABS: BILIRUBIN,TOTAL 0.5 mg/dL (0.2-1); TOT PROT 7.1 g/dl (6.4-8.2)
[2023-01-12] MEDS: CEFTRIAXONE 2 GM in DEXTROSE 5%-WATER 100 ML IVPB SCH (09:31)
[2023-01-12] MEDS: MAGNESIUM OXIDE 400 MG TABLET (FP) PO SCH ×2 (09:32→22:33)
[2023-01-12] MEDS: METOPROLOL TARTRATE 25 MG TABLET (FP) PO SCH ×2 (09:32→22:32)
[2023-01-12] MEDS: MEMANTINE HCL 5 MG TABLET (UD) PO SCH ×2 (09:32→22:33)
[2023-01-12] MEDS: DIVALPROEX SODIUM 500 MG TABLET E.C. PO SCH ×2 (09:32→22:30)
[2023-01-12] MEDS: PANTOPRAZOLE 40 MG TABLET PO SCH (09:32)
[2023-01-12] MEDS: LOSARTAN POTASSIUM 50 MG TABLET PO SCH (09:32)
[2023-01-12] MEDS: AMINO ACIDS/PROTEIN HYDROLYS 30 ML LIQUID.PKT PO SCH ×2 (09:33→17:01)
[2023-01-12] MEDS: KCL 10 MEQ IVPB 10 MEQ/100 ML INFUS.BAG IVPB SCH ×3 (11:52→15:09)
[2023-01-12] MEDS: AMINO ACIDS 4.25%/D5W 1,000 ML IV SCH (12:59)
[2023-01-12] MEDS: MEGESTROL ACETATE 400 MG/10 ML UNIT DOSE CUP PO SCH (15:12)
[2023-01-12] MEDS ORDERED: MAGNESIUM SULFATE IN WATER 2 GM/50 ML IVPB IVPB ONE (18:58)
[2023-01-12] MEDS: FAT EMULSION/OLIVE/SOY/PHOSPHO 250 ML IV SCH (22:28)
[2023-01-12] MEDS: ATORVASTATIN CA 20 MG TABLET (FP) PO SCH (22:32)
[2023-01-12] MEDS: MIRTAZAPINE 15 MG TABLET (FP) PO SCH (22:34)
[2023-01-12] MEDS: QUEtiapine FUMARATE 100 MG TABLET (FP) PO SCH (22:34)
[2023-01-13 07:26] LABS: BASO % 0.2 % (0-2.0); EOS % 0.1 % (0-4.5); HEMATOCRIT 25.7 % (35.4-49); HEMOGLOBIN 9.3 GM/dL (11.7-16.9); LYMPH % 13.6 % (8-40); MCH 31.5 pg (25.7-33.7); MCHC 36.3 g/dl (32.0-35.9); MEAN PLT VOLUME 7.7 fl (7.5-11.1); MONO % 9.3 % (3.8-10.2); NEUT % 76.8 % (42.8-82.8); PLATELET COUNT 128 10^3/uL (134-434); RBC 2.96 M/mm3 (4.00-5.60); RDW 15.2 % (11.9-15.9); WHITE BLOOD COUNT 4.6 K/mm3 (4.0-10.0)
[2023-01-13 07:49] LABS: CALCIUM 8.6 mg/dL (8.5-10.1)
[2023-01-13 07:50] LABS: ALBUMIN 1.1 g/dl (3.4-5.0); BLOOD UREA NITROGEN 10.2 mg/dL (7-18)
[2023-01-13 07:53] LABS: CREATININE 0.3 mg/dL (0.55-1.3)
[2023-01-13 07:55] LABS: BILIRUBIN,TOTAL 0.4 mg/dL (0.2-1); TOT PROT 6.8 g/dl (6.4-8.2)
[2023-01-13] MEDS: ALBUTEROL SO4 0.083% IH SOL 2.5 MG/3 ML VIAL.NEB. NEB SCH ×4 (08:15→20:05)
[2023-01-13] MEDS: ACETYLCYSTEINE 20% 200MG/ML 10 ML VIAL *FOR ORAL / INH USE ONLY NEB SCH ×4 (08:20→20:05)
[2023-01-13] MEDS: AMINO ACIDS/PROTEIN HYDROLYS 30 ML LIQUID.PKT PO SCH ×2 (10:10→17:49)
[2023-01-13] MEDS: DIVALPROEX SODIUM 500 MG TABLET E.C. PO SCH ×2 (10:11→22:10)
[2023-01-13] MEDS: LOSARTAN POTASSIUM 50 MG TABLET PO SCH (10:12)
[2023-01-13] MEDS: MAGNESIUM OXIDE 400 MG TABLET (FP) PO SCH ×2 (10:12→22:10)
[2023-01-13] MEDS: PANTOPRAZOLE 40 MG TABLET PO SCH (10:12)
[2023-01-13] MEDS: METOPROLOL TARTRATE 25 MG TABLET (FP) PO SCH ×2 (10:12→22:10)
[2023-01-13] MEDS: MEMANTINE HCL 5 MG TABLET (UD) PO SCH ×2 (10:13→23:32)
[2023-01-13] MEDS: CEFTRIAXONE 2 GM in DEXTROSE 5%-WATER 100 ML IVPB SCH (10:13)
[2023-01-13] MEDS: MEGESTROL ACETATE 400 MG/10 ML UNIT DOSE CUP PO SCH (10:19)
[2023-01-13] MEDS: POTASSIUM CHLORIDE ORAL LIQUID 20 MEQ/15 ML PO SCH ×2 (12:08→22:10)
[2023-01-13] MEDS: AMINO ACIDS 4.25%/D5W 1,000 ML IV SCH (12:08)
[2023-01-13] MEDS: ATORVASTATIN CA 20 MG TABLET (FP) PO SCH (22:10)
[2023-01-13] MEDS: QUEtiapine FUMARATE 100 MG TABLET (FP) PO SCH (22:10)
[2023-01-13] MEDS: MIRTAZAPINE 15 MG TABLET (FP) PO SCH (22:10)
[2023-01-13] MEDS: FAT EMULSION/OLIVE/SOY/PHOSPHO 250 ML IV SCH (22:11)
[2023-01-14 07:45] LABS: POTASSIUM 3.4 mmol/L (3.5-5.1)
[2023-01-14 07:55] LABS: BLOOD UREA NITROGEN 12.9 mg/dL (7-18); CALCIUM 8.8 mg/dL (8.5-10.1)
[2023-01-14] MEDS: ALBUTEROL SO4 0.083% IH SOL 2.5 MG/3 ML VIAL.NEB. NEB SCH ×4 (07:55→19:45)
[2023-01-14] MEDS: ACETYLCYSTEINE 20% 200MG/ML 10 ML VIAL *FOR ORAL / INH USE ONLY NEB SCH (07:55)
[2023-01-14 07:59] LABS: CREATININE 0.3 mg/dL (0.55-1.3)
[2023-01-14] MEDS: AMINO ACIDS/PROTEIN HYDROLYS 30 ML LIQUID.PKT PO SCH ×2 (08:59→18:11)
[2023-01-14] MEDS: ACETAMINOPHEN 325 MG TABLET (FP) PO PRN (08:59)
[2023-01-14] MEDS: METOPROLOL TARTRATE 25 MG TABLET (FP) PO SCH ×3 (09:09→23:50)
[2023-01-14] MEDS: MAGNESIUM OXIDE 400 MG TABLET (FP) PO SCH ×3 (09:09→23:51)
[2023-01-14] MEDS: LOSARTAN POTASSIUM 50 MG TABLET PO SCH (09:09)
[2023-01-14] MEDS: DIVALPROEX SODIUM 500 MG TABLET E.C. PO SCH ×3 (09:10→23:50)
[2023-01-14] MEDS: PANTOPRAZOLE 40 MG TABLET PO SCH (09:10)
[2023-01-14] MEDS: MEMANTINE HCL 5 MG TABLET (UD) PO SCH ×3 (09:10→23:51)
[2023-01-14] MEDS: POTASSIUM CHLORIDE ORAL LIQUID 20 MEQ/15 ML PO SCH ×2 (09:13→21:58)
[2023-01-14] MEDS: MEGESTROL ACETATE 400 MG/10 ML UNIT DOSE CUP PO SCH (09:13)
[2023-01-14] MEDS: CEFTRIAXONE 2 GM in DEXTROSE 5%-WATER 100 ML IVPB SCH (09:14)
[2023-01-14] MEDS ORDERED: POTASSIUM CHLORIDE ORAL LIQUID 20 MEQ/15 ML PO ONE (09:59)
[2023-01-14] MEDS: ACETYLCYSTEINE 20% 200MG/ML 4 ML VIAL *FOR ORAL / INH USE ONLY NEB SCH ×3 (11:48→19:44)
[2023-01-14] MEDS ORDERED: ALTEPLASE 50MG 10 MG in SODIUM CHLORIDE 40 ML IV SCH (13:30)
[2023-01-14] MEDS ORDERED: SODIUM CHLORIDE CVP SCH ×2 (13:30→14:00)
[2023-01-14] MEDS ORDERED: ALTEPLASE CVP SCH ×2 (13:30→14:00)
[2023-01-14] MEDS ORDERED: ALTEPLASE (CATHFLO) 2 MG/2 ML VIAL CVP SCH (14:30)
[2023-01-14] MEDS: QUEtiapine FUMARATE 100 MG TABLET (FP) PO SCH ×2 (21:29→23:51)
[2023-01-14] MEDS: ATORVASTATIN CA 20 MG TABLET (FP) PO SCH ×2 (21:30→23:50)
[2023-01-14] MEDS: MIRTAZAPINE 15 MG TABLET (FP) PO SCH (21:30)
[2023-01-14] MEDS: FAT EMULSION/OLIVE/SOY/PHOSPHO 250 ML IV SCH (21:35)
[2023-01-15] MEDS: AMINO ACIDS/PROTEIN HYDROLYS 30 ML LIQUID.PKT PO SCH ×2 (07:27→17:18)
[2023-01-15] MEDS: ALBUTEROL SO4 0.083% IH SOL 2.5 MG/3 ML VIAL.NEB. NEB SCH ×4 (07:40→20:49)
[2023-01-15] MEDS: ACETYLCYSTEINE 20% 200MG/ML 4 ML VIAL *FOR ORAL / INH USE ONLY NEB SCH ×4 (07:40→20:50)
[2023-01-15] MEDS: CEFTRIAXONE 2 GM in DEXTROSE 5%-WATER 100 ML IVPB SCH (09:03)
[2023-01-15] MEDS: LOSARTAN POTASSIUM 50 MG TABLET PO SCH (09:04)
[2023-01-15] MEDS: POTASSIUM CHLORIDE ORAL LIQUID 20 MEQ/15 ML PO SCH ×2 (09:04→21:48)
[2023-01-15] MEDS: DIVALPROEX SODIUM 500 MG TABLET E.C. PO SCH ×2 (09:04→21:46)
[2023-01-15] MEDS: PANTOPRAZOLE 40 MG TABLET PO SCH (09:04)
[2023-01-15] MEDS: METOPROLOL TARTRATE 25 MG TABLET (FP) PO SCH ×2 (09:04→21:47)
[2023-01-15] MEDS: MAGNESIUM OXIDE 400 MG TABLET (FP) PO SCH ×2 (09:05→21:47)
[2023-01-15] MEDS: MEMANTINE HCL 5 MG TABLET (UD) PO SCH ×2 (09:05→21:47)
[2023-01-15] MEDS: MEGESTROL ACETATE 400 MG/10 ML UNIT DOSE CUP PO SCH (09:05)
[2023-01-15] MEDS ORDERED: LIDOCAINE VISCOUS 2% ORAL/TOP 15 ML UNIT-DOSE CUP MM PRN (10:17)
[2023-01-15] MEDS: ALTEPLASE (CATHFLO) 2 MG/2 ML VIAL IX SCH (10:49)
[2023-01-15] MEDS: AMINO ACIDS 4.25%/D5W 1,000 ML IV SCH (10:49)
[2023-01-15] MEDS: QUEtiapine FUMARATE 25 MG TABLET PO SCH (10:49)
[2023-01-15] MEDS: FAT EMULSION/OLIVE/SOY/PHOSPHO 250 ML IV SCH (21:42)
[2023-01-15] MEDS: ATORVASTATIN CA 20 MG TABLET (FP) PO SCH (21:46)
[2023-01-15] MEDS: QUEtiapine FUMARATE 100 MG TABLET (FP) PO SCH (21:48)
[2023-01-15] MEDS: MIRTAZAPINE 15 MG TABLET (FP) PO SCH (21:48)
[2023-01-16] MEDS: AMINO ACIDS 4.25%/D5W 1,000 ML IV SCH ×5 (02:10→22:07)
[2023-01-16 07:35] LABS: BASO % 0.4 % (0-2.0); EOS % 0.1 % (0-4.5); HEMATOCRIT 24.4 % (35.4-49); HEMOGLOBIN 8.4 GM/dL (11.7-16.9); LYMPH % 17.3 % (8-40); MCH 30.9 pg (25.7-33.7); MCHC 34.4 g/dl (32.0-35.9); MEAN CELL VOLUME 89.6 fl (80-96); MEAN PLT VOLUME 7.2 fl (7.5-11.1); MONO % 7.5 % (3.8-10.2); NEUT % 74.7 % (42.8-82.8); PLATELET COUNT 115 10^3/uL (134-434); RBC 2.72 M/mm3 (4.00-5.60); RDW 15.3 % (11.9-15.9); WHITE BLOOD COUNT 4.4 K/mm3 (4.0-10.0)
[2023-01-16] MEDS: ACETYLCYSTEINE 20% 200MG/ML 4 ML VIAL *FOR ORAL / INH USE ONLY NEB SCH ×4 (07:40→19:37)
[2023-01-16] MEDS: ALBUTEROL SO4 0.083% IH SOL 2.5 MG/3 ML VIAL.NEB. NEB SCH ×4 (07:40→19:37)
[2023-01-16] MEDS: AMINO ACIDS/PROTEIN HYDROLYS 30 ML LIQUID.PKT PO SCH ×2 (08:10→16:51)
[2023-01-16 08:58] LABS: ALBUMIN 1.3 g/dl (3.4-5.0); BILIRUBIN,TOTAL 0.2 mg/dL (0.2-1); BLOOD UREA NITROGEN 12.3 mg/dL (7-18); CALCIUM 8.7 mg/dL (8.5-10.1); CREATININE 0.3 mg/dL (0.55-1.3); POTASSIUM 4.3 mmol/L (3.5-5.1); TOT PROT 7.4 g/dl (6.4-8.2)
[2023-01-16] MEDS: PANTOPRAZOLE 40 MG TABLET PO SCH (09:00)
[2023-01-16] MEDS: MEMANTINE HCL 5 MG TABLET (UD) PO SCH ×2 (09:00→21:26)
[2023-01-16] MEDS: QUEtiapine FUMARATE 25 MG TABLET PO SCH (09:00)
[2023-01-16] MEDS: LOSARTAN POTASSIUM 50 MG TABLET PO SCH (09:00)
[2023-01-16] MEDS: METOPROLOL TARTRATE 25 MG TABLET (FP) PO SCH ×2 (09:00→21:27)
[2023-01-16] MEDS: MEGESTROL ACETATE 400 MG/10 ML UNIT DOSE CUP PO SCH (09:00)
[2023-01-16] MEDS: CEFTRIAXONE 2 GM in DEXTROSE 5%-WATER 100 ML IVPB SCH (09:00)
[2023-01-16] MEDS: MAGNESIUM OXIDE 400 MG TABLET (FP) PO SCH ×2 (09:00→21:26)
[2023-01-16] MEDS: POTASSIUM CHLORIDE ORAL LIQUID 20 MEQ/15 ML PO SCH (09:00)
[2023-01-16] MEDS: DIVALPROEX SODIUM 500 MG TABLET E.C. PO SCH ×2 (09:00→21:27)
[2023-01-16] MEDS: ALTEPLASE (CATHFLO) 2 MG/2 ML VIAL IX SCH (10:30)
[2023-01-16] MEDS: THIAMINE HCL 200 MG/2 ML VIAL IVPB SCH (14:01)
[2023-01-16] MEDS: FAT EMULSION/OLIVE/SOY/PHOSPHO 250 ML IV SCH (21:26)
[2023-01-16] MEDS: ATORVASTATIN CA 20 MG TABLET (FP) PO SCH (21:26)
[2023-01-16] MEDS: ACETAMINOPHEN 325 MG TABLET (FP) PO PRN (21:27)
[2023-01-16] MEDS: MIRTAZAPINE 15 MG TABLET (FP) PO SCH (21:27)
[2023-01-16] MEDS: QUEtiapine FUMARATE 100 MG TABLET (FP) PO SCH (21:27)
[2023-01-17] MEDS: AMINO ACIDS/PROTEIN HYDROLYS 30 ML LIQUID.PKT PO SCH ×2 (07:37→16:44)
[2023-01-17 07:38] LABS: MAGNESIUM 1.4 mg/dL (1.8-2.4)
[2023-01-17] MEDS: ACETYLCYSTEINE 20% 200MG/ML 4 ML VIAL *FOR ORAL / INH USE ONLY NEB SCH ×4 (07:40→20:44)
[2023-01-17] MEDS: ALBUTEROL SO4 0.083% IH SOL 2.5 MG/3 ML VIAL.NEB. NEB SCH ×4 (07:40→20:45)
[2023-01-17 07:42] LABS: PHOSPHOROUS 3.1 mg/dL (2.5-4.9)
[2023-01-17] MEDS: AMINO ACIDS 4.25%/D5W 1,000 ML IV SCH ×3 (08:23→22:15)
[2023-01-17] MEDS: CEFTRIAXONE 2 GM in DEXTROSE 5%-WATER 100 ML IVPB SCH (09:06)
[2023-01-17] MEDS: PANTOPRAZOLE 40 MG TABLET PO SCH (09:07)
[2023-01-17] MEDS: MAGNESIUM OXIDE 400 MG TABLET (FP) PO SCH (09:07)
[2023-01-17] MEDS: THIAMINE HCL 200 MG/2 ML VIAL IVPB SCH (09:07)
[2023-01-17] MEDS: METOPROLOL TARTRATE 25 MG TABLET (FP) PO SCH (09:07)
[2023-01-17] MEDS: QUEtiapine FUMARATE 25 MG TABLET PO SCH (09:07)
[2023-01-17] MEDS: LOSARTAN POTASSIUM 50 MG TABLET PO SCH (09:07)
[2023-01-17] MEDS: DIVALPROEX SODIUM 500 MG TABLET E.C. PO SCH (09:08)
[2023-01-17] MEDS: MEMANTINE HCL 5 MG TABLET (UD) PO SCH (09:08)
[2023-01-17] MEDS: MEGESTROL ACETATE 400 MG/10 ML UNIT DOSE CUP PO SCH (09:09)
[2023-01-17] MEDS ORDERED: POTASSIUM CHLORIDE ORAL LIQUID 20 MEQ/15 ML PO SCH (10:00)
[2023-01-17] MEDS ORDERED: SCOPOLAMINE HYDROBROMIDE 1 PATCH PATCH.TD72 TD SCH (11:15)
[2023-01-17] MEDS ORDERED: PROPOFOL 1,000,000 MCG/100 ML VIAL IVPB SCH (14:45)
[2023-01-17] MEDS ORDERED: MIDAZOLAM HCL 5 MG/1 ML Single Dose Vial ONE (14:46)
[2023-01-17] MEDS ORDERED: MIDAZOLAM HCL 2 MG/2 ML SINGLE DOSE VIAL ONE (15:15)
[2023-01-17] MEDS ORDERED: FENTANYL NS IVPB 500 MCG/100 ML BAG IVPB ONE (15:22)
[2023-01-17] MEDS ORDERED: fentaNYL CITRATE 250 MCG/5 ML VIAL ONE (15:28)
[2023-01-17] MEDS ORDERED: MIDAZOLAM HCL 2 MG/2 ML SINGLE DOSE VIAL IVPUSH ONE (15:49)
[2023-01-17] MEDS ORDERED: SODIUM CHLORIDE 1,000 ML IV STA ×2 (15:49)
[2023-01-17] MEDS ORDERED: PROPOFOL 200 MG/20 ML VIAL IVPUSH ONE (15:52)
[2023-01-17] MEDS ORDERED: SUCCINYLCHOLINE CHLORIDE 200 MG/10 ML VIAL IVPUSH ONE (15:52)
[2023-01-17] MEDS ORDERED: FENTANYL IVPB 500 MCG/100 ML BAG IVPB SCH (16:00)
[2023-01-17] MEDS ORDERED: MAGNESIUM 1GM/D5W 100ML - 100 ML IVPB IVPB ONE (17:12)
[2023-01-17] MEDS: SODIUM CHLORIDE 1,000 ML IV SCH (17:20)
[2023-01-17] MEDS: PROPOFOL 1,000,000 MCG/100 ML VIAL IVPB SCH ×2 (17:21→23:48)
[2023-01-17] MEDS: NOREPINEPHRINE BITARTRATE/D5W 8 MG/250 ML BAG IVPB SCH ×3 (17:23→23:48)
[2023-01-17] MEDS ORDERED: METOPROLOL TARTRATE 25 MG TABLET (FP) NGT SCH (21:35)
[2023-01-17] MEDS ORDERED: LOSARTAN POTASSIUM 50 MG TABLET NGT SCH (21:35)
[2023-01-17] MEDS ORDERED: VALPROATE SODIUM 500 MG/5 ML VIAL IVPB SCH (22:00)
[2023-01-17] MEDS: CHLORHEXIDINE GLUCONATE 4% CLEANSER FOR DECOLONIZATION TP SCH (22:14)
[2023-01-17] MEDS: FAT EMULSION/OLIVE/SOY/PHOSPHO 250 ML IV SCH (22:14)
[2023-01-17] MEDS: MIRTAZAPINE 15 MG TABLET (FP) NGT SCH (22:14)
[2023-01-17] MEDS: MEMANTINE HCL 5 MG TABLET (UD) NGT SCH (22:14)
[2023-01-17] MEDS: ATORVASTATIN CA 20 MG TABLET (FP) NGT SCH (22:17)
[2023-01-17] MEDS: MUPIROCIN 2% TOPICAL OINTMENT FOR DECOLONIZATION NS SCH (22:18)
[2023-01-17] MEDS: VALPROATE SODIUM INJECTION 500 MG in SODIUM CHLORIDE 50 ML IVPB SCH (22:20)
[2023-01-18] MEDS ORDERED: FENTANYL INJECTION 500 MCG in SODIUM CHLORIDE 100 ML IVPB SCH (01:00)
[2023-01-18] MEDS: FENTANYL NS IVPB 500 MCG/100 ML BAG IVPB SCH (01:20)
[2023-01-18] MEDS: ALBUTEROL SO4 0.083% IH SOL 2.5 MG/3 ML VIAL.NEB. NEB SCH ×3 (07:40→20:28)
[2023-01-18 07:52] LABS: ANION GAP 4 MMOL/L (8-16); BASO % 0.5 % (0-2.0); EOS % 0.2 % (0-4.5); HEMATOCRIT 23.2 % (35.4-49); HEMOGLOBIN 8.1 GM/dL (11.7-16.9); LYMPH % 9.4 % (8-40); MCH 31.5 pg (25.7-33.7); MCHC 34.9 g/dl (32.0-35.9); MEAN CELL VOLUME 90.3 fl (80-96); MEAN PLT VOLUME 7.8 fl (7.5-11.1); MONO % 7.4 % (3.8-10.2); NEUT % 82.5 % (42.8-82.8); PLATELET COUNT 117 10^3/uL (134-434); RBC 2.57 M/mm3 (4.00-5.60); RDW 15.2 % (11.9-15.9); WHITE BLOOD COUNT 9.5 K/mm3 (4.0-10.0)
[2023-01-18] MEDS ORDERED: ACETAMINOPHEN 1000 MG/100 ML BAG IVPB PRN (08:45)
[2023-01-18 09:06] LABS: ALBUMIN 1.2 g/dl (3.4-5.0); ALK PHOS 59 U/L (45-117); BILIRUBIN,TOTAL 0.2 mg/dL (0.2-1); BLOOD UREA NITROGEN 13.6 mg/dL (7-18); CALCIUM 8.4 mg/dL (8.5-10.1); CHLORIDE 111 mmol/L (98-107); CO2 26 mmol/L (21-32); CREATININE 0.3 mg/dL (0.55-1.3); MAGNESIUM 1.3 mg/dL (1.8-2.4); PHOSPHOROUS 3.8 mg/dL (2.5-4.9); POTASSIUM 3.3 mmol/L (3.5-5.1); SGOT/AST 12 U/L (15-37); SGPT/ALT < 6 U/L (13-61); SODIUM 141 mmol/L (136-145); TOT PROT 6.7 g/dl (6.4-8.2)
[2023-01-18] MEDS: THIAMINE HCL 200 MG/2 ML VIAL IVPB SCH (09:11)
[2023-01-18] MEDS: AMINO ACIDS/PROTEIN HYDROLYS 30 ML LIQUID.PKT PO SCH (09:11)
[2023-01-18 09:12] LABS: GLUCOSE,RANDOM 103 mg/dL (74-106)
[2023-01-18] MEDS: CEFTRIAXONE 2 GM in DEXTROSE 5%-WATER 100 ML IVPB SCH (09:12)
[2023-01-18] MEDS: PANTOPRAZOLE SODIUM 40 MG VIAL IVPUSH SCH (09:13)
[2023-01-18] MEDS: MUPIROCIN 2% TOPICAL OINTMENT FOR DECOLONIZATION NS SCH ×2 (09:14→21:27)
[2023-01-18] MEDS: MEMANTINE HCL 5 MG TABLET (UD) NGT SCH ×2 (09:14→22:15)
[2023-01-18] MEDS: VALPROATE SODIUM INJECTION 500 MG in SODIUM CHLORIDE 50 ML IVPB SCH ×2 (09:16→21:27)
[2023-01-18 09:26] LABS: POTASSIUM 3.8 mmol/L (3.5-5.1)
[2023-01-18 09:28] LABS: CALCIUM 7.7 mg/dL (8.5-10.1)
[2023-01-18 09:29] LABS: BLOOD UREA NITROGEN 24.5 mg/dL (7-18)
[2023-01-18 09:32] LABS: CREATININE 0.6 mg/dL (0.55-1.3)
[2023-01-18 09:33] LABS: BILIRUBIN,TOTAL 0.6 mg/dL (0.2-1); TOT PROT 6.2 g/dl (6.4-8.2)
[2023-01-18 09:34] LABS: ALBUMIN 1.8 g/dl (3.4-5.0)
[2023-01-18] MEDS: ENOXAPARIN NA (PORCINE) 40 MG/0.4 ML DISP.SYRIN SQ SCH (11:27)
[2023-01-18] MEDS: AMINO ACIDS 4.25%/D5W 1,000 ML IV SCH (12:38)
[2023-01-18] MEDS: MEGESTROL ACETATE 400 MG/10 ML UNIT DOSE CUP NGT SCH (12:39)
[2023-01-18] MEDS: SODIUM CHLORIDE 1,000 ML IV SCH (16:31)
[2023-01-18] MEDS ORDERED: MAGNESIUM SULF 50% (8.12 MEQ/2 ML-1 GM VIAL) IVPB ONE (21:05)
[2023-01-18] MEDS: ATORVASTATIN CA 20 MG TABLET (FP) NGT SCH (21:26)
[2023-01-18] MEDS: MIRTAZAPINE 15 MG TABLET (FP) NGT SCH (21:26)
[2023-01-18] MEDS: CHLORHEXIDINE GLUCONATE 4% CLEANSER FOR DECOLONIZATION TP SCH (21:26)
[2023-01-19] MEDS: FENTANYL NS IVPB 500 MCG/100 ML BAG IVPB SCH (03:59)
[2023-01-19] MEDS: PROPOFOL 1,000,000 MCG/100 ML VIAL IVPB SCH ×3 (04:55→18:48)
[2023-01-19] MEDS: NOREPINEPHRINE BITARTRATE/D5W 8 MG/250 ML BAG IVPB SCH ×3 (04:58→18:48)
[2023-01-19] MEDS ORDERED: LACTATED RINGERS SOLUTION 1000 ML INFUS.BAG IV ONE (06:34)
[2023-01-19 07:20] LABS: BASO % 0.2 % (0-2.0); HEMATOCRIT 24.4 % (35.4-49); HEMOGLOBIN 8.3 GM/dL (11.7-16.9); LYMPH % 7.6 % (8-40); MCH 31.3 pg (25.7-33.7); MEAN PLT VOLUME 8.4 fl (7.5-11.1); MONO % 7.9 % (3.8-10.2); NEUT % 84.3 % (42.8-82.8); PLATELET COUNT 98 10^3/uL (134-434); RBC 2.65 M/mm3 (4.00-5.60); RDW 16.2 % (11.9-15.9)
[2023-01-19] MEDS: ALBUTEROL SO4 0.083% IH SOL 2.5 MG/3 ML VIAL.NEB. NEB SCH ×4 (07:41→19:37)
[2023-01-19 07:42] LABS: CHLORIDE 110 mmol/L (98-107); POTASSIUM 3.7 mmol/L (3.5-5.1); SODIUM 139 mmol/L (136-145)
[2023-01-19 07:50] LABS: ANION GAP 5 MMOL/L (8-16); BLOOD UREA NITROGEN 26.2 mg/dL (7-18); CALCIUM 8.4 mg/dL (8.5-10.1); CO2 24 mmol/L (21-32); GLUCOSE,RANDOM 82 mg/dL (74-106); MAGNESIUM 2.1 mg/dL (1.8-2.4)
[2023-01-19 07:54] LABS: BILIRUBIN,TOTAL 0.3 mg/dL (0.2-1); CREATININE 1.1 mg/dL (0.55-1.3); PHOSPHOROUS 6.3 mg/dL (2.5-4.9); SGOT/AST 14 U/L (15-37)
[2023-01-19 07:56] LABS: TOT PROT 6.7 g/dl (6.4-8.2)
[2023-01-19 08:25] LABS: ALBUMIN 1.1 g/dl (3.4-5.0); ALK PHOS 66 U/L (45-117); SGPT/ALT < 6 U/L (13-61)
[2023-01-19] MEDS: CEFTRIAXONE 2 GM in DEXTROSE 5%-WATER 100 ML IVPB SCH (09:08)
[2023-01-19] MEDS: MUPIROCIN 2% TOPICAL OINTMENT FOR DECOLONIZATION NS SCH ×2 (09:09→21:27)
[2023-01-19] MEDS: PANTOPRAZOLE SODIUM 40 MG VIAL IVPUSH SCH (09:09)
[2023-01-19] MEDS: HYDROCORTISONE SOD SUCCINATE 100 MG/2 ML VIAL IVPUSH SCH ×2 (09:09→17:58)
[2023-01-19] MEDS: ENOXAPARIN NA (PORCINE) 40 MG/0.4 ML DISP.SYRIN SQ SCH (09:09)
[2023-01-19] MEDS: VASOPRESSIN 40 UNITS/100 ML BAG IV SCH (09:09)
[2023-01-19] MEDS: MEMANTINE HCL 5 MG TABLET (UD) NGT SCH ×2 (09:10→21:27)
[2023-01-19] MEDS: THIAMINE HCL 200 MG/2 ML VIAL IVPB SCH (09:10)
[2023-01-19] MEDS: MEGESTROL ACETATE 400 MG/10 ML UNIT DOSE CUP NGT SCH (09:11)
[2023-01-19] MEDS: VALPROATE SODIUM INJECTION 500 MG in SODIUM CHLORIDE 50 ML IVPB SCH ×2 (11:00→22:18)
[2023-01-19] MEDS: FLUDROCORTISONE ACETATE 0.1 MG TABLET (FP) GT SCH (12:52)
[2023-01-19] MEDS: VANCOMYCIN/WATER FOR INJ (PEG) 1,000 MG/200 ML BAG IVPB SCH (17:59)
[2023-01-19] MEDS: SODIUM CHLORIDE 1,000 ML IV SCH (17:59)
[2023-01-19] MEDS: CEFEPIME 1 GM in DEXTROSE 5%-WATER 100 ML IVPB SCH (18:15)
[2023-01-19] MEDS: MIRTAZAPINE 15 MG TABLET (FP) NGT SCH (21:26)
[2023-01-19] MEDS: ATORVASTATIN CA 20 MG TABLET (FP) NGT SCH (21:27)
[2023-01-19] MEDS: CHLORHEXIDINE GLUCONATE 4% CLEANSER FOR DECOLONIZATION TP SCH (21:27)
[2023-01-20] MEDS: PROPOFOL 1,000,000 MCG/100 ML VIAL IVPB SCH ×3 (02:29→16:16)
[2023-01-20] MEDS: HYDROCORTISONE SOD SUCCINATE 100 MG/2 ML VIAL IVPUSH SCH ×3 (02:30→17:04)
[2023-01-20] MEDS: CEFEPIME 1 GM in DEXTROSE 5%-WATER 100 ML IVPB SCH ×3 (02:30→17:04)
[2023-01-20] MEDS: FENTANYL NS IVPB 500 MCG/100 ML BAG IVPB SCH ×3 (02:30→14:30)
[2023-01-20] MEDS: NOREPINEPHRINE BITARTRATE/D5W 8 MG/250 ML BAG IVPB SCH ×3 (02:30→21:17)
[2023-01-20] MEDS: VANCOMYCIN/WATER FOR INJ (PEG) 1,000 MG/200 ML BAG IVPB SCH (06:03)
[2023-01-20 07:04] LABS: CHLORIDE 109 mmol/L (98-107); HEMATOCRIT 22.3 % (35.4-49); HEMOGLOBIN 7.3 GM/dL (11.7-16.9); MCH 30.3 pg (25.7-33.7); MCHC 32.7 g/dl (32.0-35.9); MEAN CELL VOLUME 92.6 fl (80-96); MEAN PLT VOLUME 8.5 fl (7.5-11.1); PLATELET COUNT 79 10^3/uL (134-434); POTASSIUM 4.5 mmol/L (3.5-5.1); RDW 15.7 % (11.9-15.9); SODIUM 136 mmol/L (136-145); WHITE BLOOD COUNT 12.5 K/mm3 (4.0-10.0)
[2023-01-20 07:07] LABS: ANION GAP 8 MMOL/L (8-16); CO2 20 mmol/L (21-32); GLUCOSE,RANDOM 164 mg/dL (74-106); MAGNESIUM 1.9 mg/dL (1.8-2.4)
[2023-01-20 07:11] LABS: BILIRUBIN,TOTAL 0.2 mg/dL (0.2-1); CREATININE 1.9 mg/dL (0.55-1.3); PHOSPHOROUS 7.4 mg/dL (2.5-4.9); SGOT/AST 16 U/L (15-37)
[2023-01-20 07:12] LABS: TOT PROT 6.5 g/dl (6.4-8.2)
[2023-01-20 07:13] LABS: ALK PHOS 79 U/L (45-117)
[2023-01-20 07:22] LABS: SGPT/ALT < 6 U/L (13-61)
[2023-01-20] MEDS: ALBUTEROL SO4 0.083% IH SOL 2.5 MG/3 ML VIAL.NEB. NEB SCH ×4 (07:45→19:47)
[2023-01-20] MEDS: VASOPRESSIN 40 UNITS/100 ML BAG IV SCH (08:27)
[2023-01-20] MEDS: THIAMINE HCL 200 MG/2 ML VIAL IVPB SCH (09:12)
[2023-01-20] MEDS: MEGESTROL ACETATE 400 MG/10 ML UNIT DOSE CUP NGT SCH (09:12)
[2023-01-20] MEDS: VALPROATE SODIUM INJECTION 500 MG in SODIUM CHLORIDE 50 ML IVPB SCH ×2 (09:12→21:35)
[2023-01-20] MEDS: FLUDROCORTISONE ACETATE 0.1 MG TABLET (FP) GT SCH (09:12)
[2023-01-20] MEDS: ENOXAPARIN NA (PORCINE) 40 MG/0.4 ML DISP.SYRIN SQ SCH (09:12)
[2023-01-20] MEDS: PANTOPRAZOLE SODIUM 40 MG VIAL IVPUSH SCH (09:12)
[2023-01-20] MEDS: MEMANTINE HCL 5 MG TABLET (UD) NGT SCH ×2 (09:12→21:36)
[2023-01-20] MEDS: MUPIROCIN 2% TOPICAL OINTMENT FOR DECOLONIZATION NS SCH ×2 (09:13→21:34)
[2023-01-20] MEDS ORDERED: SODIUM CHLORIDE 1,000 ML IV STA (10:43)
[2023-01-20] MEDS: SODIUM CHLORIDE 1,000 ML IV SCH (15:41)
[2023-01-20] MEDS ORDERED: PATIENT'S OWN MEDICATION (NON-FORMULARY) (Mirtazapine [Mirtazapine] 7.5 MG Tablet) PO SCH (17:15)
[2023-01-20] MEDS: CHLORHEXIDINE GLUCONATE 4% CLEANSER FOR DECOLONIZATION TP SCH (21:35)
[2023-01-20] MEDS: ATORVASTATIN CA 20 MG TABLET (FP) NGT SCH (21:36)
[2023-01-20] MEDS: MIRTAZAPINE 15 MG TABLET (FP) GT SCH (21:36)
[2023-01-20] MEDS: QUEtiapine FUMARATE 25 MG TABLET GT SCH (21:36)
[2023-01-20] MEDS ORDERED: QUEtiapine FUMARATE 25 MG TABLET PO SCH (22:00)
[2023-01-20] MEDS: SENNOSIDES 8.8 MG/5 ML SYRUP GT SCH (23:00)
[2023-01-20] MEDS: DOCUSATE NA 100 MG/10 ML UNIT-DOSE CUPS NGT SCH (23:00)
[2023-01-21] MEDS: VASOPRESSIN 40 UNITS/100 ML BAG IV SCH ×3 (01:07→12:59)
[2023-01-21] MEDS: FENTANYL NS IVPB 500 MCG/100 ML BAG IVPB SCH ×3 (02:10→17:01)
[2023-01-21] MEDS: HYDROCORTISONE SOD SUCCINATE 100 MG/2 ML VIAL IVPUSH SCH ×3 (02:11→17:00)
[2023-01-21] MEDS: CEFEPIME 1 GM in DEXTROSE 5%-WATER 100 ML IVPB SCH ×3 (02:11→17:00)
[2023-01-21 06:59] LABS: HEMATOCRIT 21.8 % (35.4-49); HEMOGLOBIN 7.3 GM/dL (11.7-16.9); MCH 31.5 pg (25.7-33.7); MCHC 33.7 g/dl (32.0-35.9); MEAN CELL VOLUME 93.4 fl (80-96); MEAN PLT VOLUME 8.7 fl (7.5-11.1); PLATELET COUNT 78 10^3/uL (134-434); RBC 2.33 M/mm3 (4.00-5.60); RDW 15.8 % (11.9-15.9); WHITE BLOOD COUNT 22.3 K/mm3 (4.0-10.0)
[2023-01-21 07:17] LABS: POTASSIUM 4.7 mmol/L (3.5-5.1)
[2023-01-21 07:19] LABS: CALCIUM 7.9 mg/dL (8.5-10.1)
[2023-01-21 07:20] LABS: BLOOD UREA NITROGEN 42.2 mg/dL (7-18); MAGNESIUM 2.1 mg/dL (1.8-2.4)
[2023-01-21 07:23] LABS: CREATININE 2.4 mg/dL (0.55-1.3); PHOSPHOROUS 7.9 mg/dL (2.5-4.9)
[2023-01-21] MEDS: PROPOFOL 1,000,000 MCG/100 ML VIAL IVPB SCH (08:00)
[2023-01-21] MEDS: ALBUTEROL SO4 0.083% IH SOL 2.5 MG/3 ML VIAL.NEB. NEB SCH ×4 (08:10→20:56)
[2023-01-21] MEDS: DOCUSATE NA 100 MG/10 ML UNIT-DOSE CUPS NGT SCH (09:33)
[2023-01-21] MEDS: FLUDROCORTISONE ACETATE 0.1 MG TABLET (FP) GT SCH (09:33)
[2023-01-21] MEDS: PANTOPRAZOLE SODIUM 40 MG VIAL IVPUSH SCH (09:33)
[2023-01-21] MEDS: VALPROATE SODIUM INJECTION 500 MG in SODIUM CHLORIDE 50 ML IVPB SCH ×2 (09:34→21:43)
[2023-01-21] MEDS: MUPIROCIN 2% TOPICAL OINTMENT FOR DECOLONIZATION NS SCH ×2 (09:34→21:43)
[2023-01-21] MEDS: NOREPINEPHRINE BITARTRATE/D5W 8 MG/250 ML BAG IVPB SCH (09:34)
[2023-01-21] MEDS: MEMANTINE HCL 5 MG TABLET (UD) NGT SCH (09:34)
[2023-01-21] MEDS: ENOXAPARIN NA (PORCINE) 40 MG/0.4 ML DISP.SYRIN SQ SCH (09:34)
[2023-01-21] MEDS: THIAMINE HCL 200 MG/2 ML VIAL IVPB SCH (09:59)
[2023-01-21] MEDS ORDERED: METOCLOPRAMIDE HCL INJECTION 10 MG/2 ML VIAL IVPUSH ONE (10:20)
[2023-01-21] MEDS: POLYETHYLENE GLYCOL (HEALTHYLAX) 3350 17 GM PACKET NGT SCH ×2 (10:36→21:42)
[2023-01-21] MEDS: SODIUM CHLORIDE 1,000 ML IV SCH (17:00)
[2023-01-21] MEDS: QUEtiapine FUMARATE 25 MG TABLET GT SCH (21:42)
[2023-01-21] MEDS: ATORVASTATIN CA 20 MG TABLET (FP) NGT SCH (21:42)
[2023-01-21] MEDS: CHLORHEXIDINE GLUCONATE 4% CLEANSER FOR DECOLONIZATION TP SCH (21:42)
[2023-01-21] MEDS: MIRTAZAPINE 15 MG TABLET (FP) GT SCH (21:42)
[2023-01-22] MEDS: MEMANTINE HCL 5 MG TABLET (UD) NGT SCH ×3 (00:02→21:17)
[2023-01-22] MEDS: SENNOSIDES 8.8 MG/5 ML SYRUP GT SCH ×2 (00:02→21:18)
[2023-01-22] MEDS: HYDROCORTISONE SOD SUCCINATE 100 MG/2 ML VIAL IVPUSH SCH ×3 (00:59→17:08)
[2023-01-22] MEDS: FENTANYL NS IVPB 500 MCG/100 ML BAG IVPB SCH ×3 (00:59→17:30)
[2023-01-22] MEDS: CEFEPIME 1 GM in DEXTROSE 5%-WATER 100 ML IVPB SCH ×3 (00:59→17:08)
[2023-01-22] MEDS ORDERED: VASOPRESSIN 20 UNITS/ML VIAL IV ONE (04:59)
[2023-01-22 07:21] LABS: HEMATOCRIT 20.1 % (35.4-49); MCH 29.9 pg (25.7-33.7); MCHC 31.3 g/dl (32.0-35.9); MEAN CELL VOLUME 95.7 fl (80-96); MEAN PLT VOLUME 8.5 fl (7.5-11.1); PLATELET COUNT 42 10^3/uL (134-434); RDW 15.9 % (11.9-15.9); WHITE BLOOD COUNT 19.7 K/mm3 (4.0-10.0)
[2023-01-22 07:23] LABS: POTASSIUM 4.9 mmol/L (3.5-5.1)
[2023-01-22 07:27] LABS: BLOOD UREA NITROGEN 54.5 mg/dL (7-18); CALCIUM 7.4 mg/dL (8.5-10.1)
[2023-01-22 07:30] LABS: CREATININE 2.9 mg/dL (0.55-1.3)
[2023-01-22 07:31] LABS: PHOSPHOROUS 8.6 mg/dL (2.5-4.9)
[2023-01-22 07:33] LABS: HEMOGLOBIN 6.3 GM/dL (11.7-16.9)
[2023-01-22] MEDS: ALBUTEROL SO4 0.083% IH SOL 2.5 MG/3 ML VIAL.NEB. NEB SCH ×4 (08:25→20:11)
[2023-01-22] MEDS: PROPOFOL 1,000,000 MCG/100 ML VIAL IVPB SCH ×2 (08:29→17:09)
[2023-01-22] MEDS: DOCUSATE NA 100 MG/10 ML UNIT-DOSE CUPS NGT SCH (09:18)
[2023-01-22] MEDS: THIAMINE HCL 200 MG/2 ML VIAL IVPB SCH (09:18)
[2023-01-22] MEDS: PANTOPRAZOLE SODIUM 40 MG VIAL IVPUSH SCH (09:18)
[2023-01-22] MEDS: FLUDROCORTISONE ACETATE 0.1 MG TABLET (FP) GT SCH (09:18)
[2023-01-22] MEDS: ENOXAPARIN NA (PORCINE) 40 MG/0.4 ML DISP.SYRIN SQ SCH (09:19)
[2023-01-22] MEDS: MUPIROCIN 2% TOPICAL OINTMENT FOR DECOLONIZATION NS SCH (09:19)
[2023-01-22] MEDS: POLYETHYLENE GLYCOL (HEALTHYLAX) 3350 17 GM PACKET NGT SCH ×2 (09:19→21:17)
[2023-01-22] MEDS: VALPROATE SODIUM INJECTION 500 MG in SODIUM CHLORIDE 50 ML IVPB SCH ×2 (09:20→21:47)
[2023-01-22] MEDS ORDERED: FUROSEMIDE 40 MG/4 ML INJECTABLE VIAL IVPUSH ONE ×2 (11:22→13:30)
[2023-01-22] MEDS ORDERED: ALBUMIN HUMAN 5% 500 ML IV SOLUTION IV ONE (12:30)
[2023-01-22] MEDS: NOREPINEPHRINE BITARTRATE/D5W 8 MG/250 ML BAG IVPB SCH ×2 (14:34→17:08)
[2023-01-22] MEDS: SODIUM CHLORIDE 1,000 ML IV SCH (15:31)
[2023-01-22] MEDS: VASOPRESSIN 40 UNITS/100 ML BAG IV SCH ×2 (17:08→17:30)
[2023-01-22] MEDS: CHLORHEXIDINE GLUCONATE 4% CLEANSER FOR DECOLONIZATION TP SCH (21:16)
[2023-01-22] MEDS: MIRTAZAPINE 15 MG TABLET (FP) GT SCH (21:17)
[2023-01-22] MEDS: ATORVASTATIN CA 20 MG TABLET (FP) NGT SCH (21:17)
[2023-01-22] MEDS: QUEtiapine FUMARATE 25 MG TABLET GT SCH (21:18)
[2023-01-23] MEDS: HYDROCORTISONE SOD SUCCINATE 100 MG/2 ML VIAL IVPUSH SCH ×3 (01:28→16:59)
[2023-01-23] MEDS: CEFEPIME 1 GM in DEXTROSE 5%-WATER 100 ML IVPB SCH ×3 (01:28→21:08)
[2023-01-23] MEDS: FENTANYL NS IVPB 500 MCG/100 ML BAG IVPB SCH ×4 (02:23→23:19)
[2023-01-23] MEDS: SODIUM CHLORIDE 1,000 ML IV SCH ×2 (02:24→12:42)
[2023-01-23 06:53] LABS: POTASSIUM 4.9 mmol/L (3.5-5.1)
[2023-01-23 06:57] LABS: CALCIUM 7.5 mg/dL (8.5-10.1)
[2023-01-23 06:58] LABS: BLOOD UREA NITROGEN 63.4 mg/dL (7-18); MAGNESIUM 2.1 mg/dL (1.8-2.4)
[2023-01-23 07:01] LABS: CREATININE 3.3 mg/dL (0.55-1.3); PHOSPHOROUS 8.6 mg/dL (2.5-4.9)
[2023-01-23 07:09] LABS: HEMATOCRIT 21.6 % (35.4-49); MCH 29.6 pg (25.7-33.7); MCHC 31.7 g/dl (32.0-35.9); MEAN CELL VOLUME 93.3 fl (80-96); RBC 2.31 M/mm3 (4.00-5.60); RDW 16.7 % (11.9-15.9); WHITE BLOOD COUNT 16.7 K/mm3 (4.0-10.0)
[2023-01-23 07:40] LABS: HEMOGLOBIN 6.8 GM/dL (11.7-16.9)
[2023-01-23 07:41] LABS: PLATELET COUNT 17 10^3/uL (134-434)
[2023-01-23] MEDS: ALBUTEROL SO4 0.083% IH SOL 2.5 MG/3 ML VIAL.NEB. NEB SCH ×4 (08:48→20:30)
[2023-01-23] MEDS: PROPOFOL 1,000,000 MCG/100 ML VIAL IVPB SCH (09:00)
[2023-01-23] MEDS: FLUDROCORTISONE ACETATE 0.1 MG TABLET (FP) GT SCH (09:01)
[2023-01-23] MEDS: PANTOPRAZOLE SODIUM 40 MG VIAL IVPUSH SCH (09:01)
[2023-01-23] MEDS: VASOPRESSIN 40 UNITS/100 ML BAG IV SCH ×2 (09:01→23:19)
[2023-01-23] MEDS: VALPROATE SODIUM INJECTION 500 MG in SODIUM CHLORIDE 50 ML IVPB SCH ×2 (09:01→21:32)
[2023-01-23] MEDS: THIAMINE HCL 200 MG/2 ML VIAL IVPB SCH (09:01)
[2023-01-23] MEDS: DOCUSATE NA 100 MG/10 ML UNIT-DOSE CUPS NGT SCH (09:01)
[2023-01-23] MEDS: MEMANTINE HCL 5 MG TABLET (UD) NGT SCH ×2 (09:02→21:09)
[2023-01-23] MEDS: POLYETHYLENE GLYCOL (HEALTHYLAX) 3350 17 GM PACKET NGT SCH ×2 (09:02→21:09)
[2023-01-23 11:00] LABS: INR 1.38 (0.83-1.09); PROTHROMBIN TIME (PATIENT) 15.9 SEC (9.7-13.0)
[2023-01-23 11:02] LABS: ACTIVATED PTT 35.2 SECONDS (25.2-36.5)
[2023-01-23 14:44] LABS: HEMATOCRIT 25.5 % (35.4-49); HEMOGLOBIN 8.4 GM/dL (11.7-16.9); MCH 28.7 pg (25.7-33.7); MEAN PLT VOLUME 9.2 fl (7.5-11.1); RBC 2.93 M/mm3 (4.00-5.60); RDW 22.1 % (11.9-15.9); WHITE BLOOD COUNT 20.4 K/mm3 (4.0-10.0)
[2023-01-23 14:46] LABS: PLATELET COUNT 15 10^3/uL (134-434)
[2023-01-23] MEDS: NOREPINEPHRINE BITARTRATE/D5W 8 MG/250 ML BAG IVPB SCH (16:55)
[2023-01-23] MEDS: SENNOSIDES 8.8 MG/5 ML SYRUP GT SCH (21:09)
[2023-01-23] MEDS: ATORVASTATIN CA 20 MG TABLET (FP) NGT SCH (21:09)
[2023-01-23] MEDS: CHLORHEXIDINE GLUCONATE 4% CLEANSER FOR DECOLONIZATION TP SCH (21:09)
[2023-01-23] MEDS: QUEtiapine FUMARATE 25 MG TABLET GT SCH (21:09)
[2023-01-23] MEDS: MIRTAZAPINE 15 MG TABLET (FP) GT SCH (21:09)
[2023-01-23] MEDS ORDERED: FAMOTIDINE 20 MG/50 ML IVPB 20 MG/50 ML MG IVPB SCH (22:00)
[2023-01-24] MEDS: HYDROCORTISONE SOD SUCCINATE 100 MG/2 ML VIAL IVPUSH SCH ×3 (01:12→17:02)
[2023-01-24] MEDS: FENTANYL NS IVPB 500 MCG/100 ML BAG IVPB SCH ×5 (01:13→20:42)
[2023-01-24] MEDS: PROPOFOL 1,000,000 MCG/100 ML VIAL IVPB SCH ×2 (02:33→10:48)
[2023-01-24] MEDS: SODIUM CHLORIDE 1,000 ML IV SCH (02:41)
[2023-01-24 06:23] LABS: HEMATOCRIT 25.1 % (35.4-49); HEMOGLOBIN 8.2 GM/dL (11.7-16.9); MCH 28.7 pg (25.7-33.7); MCHC 32.8 g/dl (32.0-35.9); MEAN CELL VOLUME 87.3 fl (80-96); MEAN PLT VOLUME 9.9 fl (7.5-11.1); RBC 2.87 M/mm3 (4.00-5.60); RDW 22.8 % (11.9-15.9); WHITE BLOOD COUNT 25.2 K/mm3 (4.0-10.0)
[2023-01-24 06:28] LABS: PLATELET COUNT 25 10^3/uL (134-434)
[2023-01-24] MEDS: NOREPINEPHRINE BITARTRATE/D5W 8 MG/250 ML BAG IVPB SCH ×3 (06:35→17:02)
[2023-01-24 06:51] LABS: POTASSIUM 5.2 mmol/L (3.5-5.1)
[2023-01-24 06:53] LABS: BLOOD UREA NITROGEN 68.8 mg/dL (7-18); CALCIUM 7.4 mg/dL (8.5-10.1)
[2023-01-24 06:57] LABS: CREATININE 3.5 mg/dL (0.55-1.3)
[2023-01-24 06:58] LABS: BILIRUBIN,TOTAL 0.5 mg/dL (0.2-1); TOT PROT 5.4 g/dl (6.4-8.2)
[2023-01-24 07:08] LABS: ALBUMIN 1.3 g/dl (3.4-5.0)
[2023-01-24 07:49] LABS: PHOSPHOROUS 8.4 mg/dL (2.5-4.9)
[2023-01-24] MEDS: ALBUTEROL SO4 0.083% IH SOL 2.5 MG/3 ML VIAL.NEB. NEB SCH ×4 (08:10→20:16)
[2023-01-24] MEDS ORDERED: DEXTROSE 50%-WATER - 25 GM/50 ML VIAL IVPUSH ONE (08:16)
[2023-01-24] MEDS ORDERED: DEXTROSE 50%-WATER 25 GM/50 ML DISP.SYRIN ONE (08:17)
[2023-01-24] MEDS: FAMOTIDINE 20 MG/50 ML IVPB 20 MG/50 ML MG IVPB SCH (09:02)
[2023-01-24] MEDS: THIAMINE HCL 200 MG/2 ML VIAL IVPB SCH (09:03)
[2023-01-24] MEDS: POLYETHYLENE GLYCOL (HEALTHYLAX) 3350 17 GM PACKET NGT SCH ×2 (09:03→21:24)
[2023-01-24] MEDS: FLUDROCORTISONE ACETATE 0.1 MG TABLET (FP) GT SCH (09:03)
[2023-01-24] MEDS: DOCUSATE NA 100 MG/10 ML UNIT-DOSE CUPS NGT SCH (09:03)
[2023-01-24] MEDS: MEMANTINE HCL 5 MG TABLET (UD) NGT SCH ×2 (09:03→21:25)
[2023-01-24] MEDS: CEFEPIME 1 GM in DEXTROSE 5%-WATER 100 ML IVPB SCH ×2 (09:03→21:24)
[2023-01-24] MEDS: VASOPRESSIN 40 UNITS/100 ML BAG IV SCH ×2 (10:48→22:34)
[2023-01-24] MEDS: VALPROATE SODIUM INJECTION 500 MG in SODIUM CHLORIDE 50 ML IVPB SCH ×2 (11:40→21:24)
[2023-01-24] MEDS: CHLORHEXIDINE GLUCONATE 4% CLEANSER FOR DECOLONIZATION TP SCH (21:24)
[2023-01-24] MEDS: ATORVASTATIN CA 20 MG TABLET (FP) NGT SCH (21:24)
[2023-01-24] MEDS: MIRTAZAPINE 15 MG TABLET (FP) GT SCH (21:25)
[2023-01-24] MEDS: QUEtiapine FUMARATE 25 MG TABLET GT SCH (21:26)
[2023-01-24] MEDS: SENNOSIDES 8.8 MG/5 ML SYRUP GT SCH (21:26)
[2023-01-25] MEDS: NOREPINEPHRINE BITARTRATE/D5W 8 MG/250 ML BAG IVPB SCH ×3 (02:01→14:35)
[2023-01-25] MEDS: PROPOFOL 1,000,000 MCG/100 ML VIAL IVPB SCH ×3 (02:02→09:02)
[2023-01-25] MEDS: FENTANYL NS IVPB 500 MCG/100 ML BAG IVPB SCH ×3 (02:05→14:16)
[2023-01-25] MEDS: HYDROCORTISONE SOD SUCCINATE 100 MG/2 ML VIAL IVPUSH SCH ×3 (02:05→17:02)
[2023-01-25 07:37] LABS: HEMATOCRIT 20.8 % (35.4-49); MCH 28.1 pg (25.7-33.7); MCHC 31.6 g/dl (32.0-35.9); MEAN CELL VOLUME 88.7 fl (80-96); RBC 2.34 M/mm3 (4.00-5.60); RDW 23.3 % (11.9-15.9); WHITE BLOOD COUNT 13.4 K/mm3 (4.0-10.0)
[2023-01-25 07:42] LABS: HEMOGLOBIN 6.6 GM/dL (11.7-16.9); INR 1.47 (0.83-1.09); PLATELET COUNT 17 10^3/uL (134-434)
[2023-01-25 07:56] LABS: POTASSIUM 5.5 mmol/L (3.5-5.1)
[2023-01-25 07:58] LABS: BLOOD UREA NITROGEN 72.9 mg/dL (7-18); CALCIUM 7.6 mg/dL (8.5-10.1); MAGNESIUM 2.1 mg/dL (1.8-2.4)
[2023-01-25 08:01] LABS: CREATININE 3.9 mg/dL (0.55-1.3)
[2023-01-25 08:44] LABS: PHOSPHOROUS 8.8 mg/dL (2.5-4.9)
[2023-01-25] MEDS: ALBUTEROL SO4 0.083% IH SOL 2.5 MG/3 ML VIAL.NEB. NEB SCH ×4 (08:55→20:15)
[2023-01-25] MEDS: FLUDROCORTISONE ACETATE 0.1 MG TABLET (FP) GT SCH (09:02)
[2023-01-25] MEDS: CEFEPIME 1 GM in DEXTROSE 5%-WATER 100 ML IVPB SCH ×2 (09:02→21:17)
[2023-01-25] MEDS: THIAMINE HCL 200 MG/2 ML VIAL IVPB SCH (09:02)
[2023-01-25] MEDS: MEMANTINE HCL 5 MG TABLET (UD) NGT SCH ×3 (09:03→21:16)
[2023-01-25] MEDS: FAMOTIDINE 20 MG/50 ML IVPB 20 MG/50 ML MG IVPB SCH (09:03)
[2023-01-25] MEDS: POLYETHYLENE GLYCOL (HEALTHYLAX) 3350 17 GM PACKET NGT SCH ×3 (09:03→21:15)
[2023-01-25] MEDS: DOCUSATE NA 100 MG/10 ML UNIT-DOSE CUPS NGT SCH ×2 (09:03→09:26)
[2023-01-25] MEDS: VASOPRESSIN 40 UNITS/100 ML BAG IV SCH (10:00)
[2023-01-25] MEDS: VALPROATE SODIUM INJECTION 500 MG in SODIUM CHLORIDE 50 ML IVPB SCH ×2 (10:15→21:43)
[2023-01-25] MEDS: SODIUM ZIRCONIUM CYCLOSILICATE (LOKELMA) 5 GM PACKET PO SCH (14:37)
[2023-01-25 16:15] LABS: HEMATOCRIT 24.6 % (35.4-49); HEMOGLOBIN 7.9 GM/dL (11.7-16.9); MCH 27.2 pg (25.7-33.7); MEAN CELL VOLUME 85.2 fl (80-96); MEAN PLT VOLUME 7.4 fl (7.5-11.1); RBC 2.89 M/mm3 (4.00-5.60); RDW 22.8 % (11.9-15.9); WHITE BLOOD COUNT 16.4 K/mm3 (4.0-10.0)
[2023-01-25 16:28] LABS: PLATELET COUNT 53 10^3/uL (134-434)
[2023-01-25] MEDS: QUEtiapine FUMARATE 25 MG TABLET GT SCH (21:16)
[2023-01-25] MEDS: ATORVASTATIN CA 20 MG TABLET (FP) NGT SCH (21:16)
[2023-01-25] MEDS: SENNOSIDES 8.8 MG/5 ML SYRUP GT SCH (21:16)
[2023-01-25] MEDS: MIRTAZAPINE 15 MG TABLET (FP) GT SCH (21:16)
[2023-01-25] MEDS: CHLORHEXIDINE GLUCONATE 4% CLEANSER FOR DECOLONIZATION TP SCH (21:17)
[2023-01-26] MEDS: FENTANYL NS IVPB 500 MCG/100 ML BAG IVPB SCH ×2 (02:39→12:51)
[2023-01-26] MEDS: HYDROCORTISONE SOD SUCCINATE 100 MG/2 ML VIAL IVPUSH SCH ×3 (02:39→18:16)
[2023-01-26 06:59] LABS: HEMATOCRIT 22.8 % (35.4-49); HEMOGLOBIN 7.5 GM/dL (11.7-16.9); MCH 27.9 pg (25.7-33.7); MCHC 32.9 g/dl (32.0-35.9); MEAN CELL VOLUME 84.6 fl (80-96); PLATELET COUNT 37 10^3/uL (134-434); RBC 2.69 M/mm3 (4.00-5.60); RDW 23.4 % (11.9-15.9); WHITE BLOOD COUNT 15.3 K/mm3 (4.0-10.0)
[2023-01-26 07:05] LABS: INR 1.49 (0.83-1.09); PROTHROMBIN TIME (PATIENT) 17.2 SEC (9.7-13.0)
[2023-01-26 07:08] LABS: ACTIVATED PTT 37.6 SECONDS (25.2-36.5)
[2023-01-26 07:15] LABS: CHLORIDE 106 mmol/L (98-107); POTASSIUM 5.8 mmol/L (3.5-5.1); SODIUM 130 mmol/L (136-145)
[2023-01-26 07:16] LABS: CALCIUM 7.6 mg/dL (8.5-10.1)
[2023-01-26 07:17] LABS: ANION GAP 11 MMOL/L (8-16); CO2 14 mmol/L (21-32); GLUCOSE,RANDOM 63 mg/dL (74-106)
[2023-01-26 07:21] LABS: CREATININE 4.1 mg/dL (0.55-1.3)
[2023-01-26] MEDS: ALBUTEROL SO4 0.083% IH SOL 2.5 MG/3 ML VIAL.NEB. NEB SCH ×4 (08:10→20:40)
[2023-01-26] MEDS ORDERED: DEXTROSE 50%-WATER - 25 GM/50 ML VIAL IVPUSH ONE (08:31)
[2023-01-26] MEDS: POLYETHYLENE GLYCOL (HEALTHYLAX) 3350 17 GM PACKET NGT SCH ×2 (09:17→21:29)
[2023-01-26] MEDS: DOCUSATE NA 100 MG/10 ML UNIT-DOSE CUPS NGT SCH (09:17)
[2023-01-26] MEDS: SODIUM ZIRCONIUM CYCLOSILICATE (LOKELMA) 5 GM PACKET PO SCH (09:18)
[2023-01-26] MEDS: MEMANTINE HCL 5 MG TABLET (UD) NGT SCH ×2 (09:18→21:29)
[2023-01-26] MEDS ORDERED: DEXTROSE 50%-WATER 25 GM/50 ML DISP.SYRIN ONE (09:19)
[2023-01-26] MEDS: CEFEPIME 1 GM in DEXTROSE 5%-WATER 100 ML IVPB SCH ×2 (09:23→21:28)
[2023-01-26] MEDS: FAMOTIDINE 20 MG/50 ML IVPB 20 MG/50 ML MG IVPB SCH (09:23)
[2023-01-26] MEDS: THIAMINE HCL 200 MG/2 ML VIAL IVPB SCH (09:25)
[2023-01-26] MEDS: VALPROATE SODIUM INJECTION 500 MG in SODIUM CHLORIDE 50 ML IVPB SCH ×2 (11:15→21:44)
[2023-01-26] MEDS ORDERED: DEXTROSE 5%-WATER - 1,000 ML IV SCH (11:30)
[2023-01-26] MEDS: NOREPINEPHRINE BITARTRATE/D5W 8 MG/250 ML BAG IVPB SCH ×2 (12:50→20:35)
[2023-01-26] MEDS: PROPOFOL 1,000,000 MCG/100 ML VIAL IVPB SCH (12:50)
[2023-01-26] MEDS: VASOPRESSIN 40 UNITS/100 ML BAG IV SCH (18:16)
[2023-01-26] MEDS: CHLORHEXIDINE GLUCONATE 4% CLEANSER FOR DECOLONIZATION TP SCH (21:28)
[2023-01-26] MEDS: MIRTAZAPINE 15 MG TABLET (FP) GT SCH (21:29)
[2023-01-26] MEDS: ATORVASTATIN CA 20 MG TABLET (FP) NGT SCH (21:29)
[2023-01-26] MEDS: SENNOSIDES 8.8 MG/5 ML SYRUP GT SCH (21:30)
[2023-01-26] MEDS: QUEtiapine FUMARATE 25 MG TABLET GT SCH (21:30)
[2023-01-27] MEDS: FENTANYL NS IVPB 500 MCG/100 ML BAG IVPB SCH ×3 (00:29→20:33)
[2023-01-27] MEDS: HYDROCORTISONE SOD SUCCINATE 100 MG/2 ML VIAL IVPUSH SCH ×3 (02:34→17:05)
[2023-01-27] MEDS: NOREPINEPHRINE BITARTRATE/D5W 8 MG/250 ML BAG IVPB SCH ×3 (04:34→20:50)
[2023-01-27] MEDS: PROPOFOL 1,000,000 MCG/100 ML VIAL IVPB SCH ×2 (06:21→17:05)
[2023-01-27] MEDS ORDERED: DEXTROSE 50%-WATER - 25 GM/50 ML VIAL IVPUSH ONE ×4 (06:31→10:55)
[2023-01-27] MEDS ORDERED: DEXTROSE 50%-WATER 25 GM/50 ML DISP.SYRIN ONE (06:38)
[2023-01-27] MEDS ORDERED: DEXTROSE 50%-WATER 25 GM/50 ML DISP.SYRIN IVPUSH ONE (07:00)
[2023-01-27 07:22] LABS: MCH 28.3 pg (25.7-33.7); MCHC 33.2 g/dl (32.0-35.9); MEAN CELL VOLUME 85.3 fl (80-96); RBC 2.46 M/mm3 (4.00-5.60); RDW 23.3 % (11.9-15.9); WHITE BLOOD COUNT 17.8 K/mm3 (4.0-10.0)
[2023-01-27] MEDS ORDERED: ARTIFICIAL TEARS (POLYVINYL ALCOHOL) OPTH DROPS OU PRN (07:22)
[2023-01-27] MEDS ORDERED: DEXTROSE 5%-WATER - 1,000 ML IV SCH (07:30)
[2023-01-27 07:35] LABS: PLATELET COUNT 28 10^3/uL (134-434)
[2023-01-27 07:39] LABS: CHLORIDE 101 mmol/L (98-107); POTASSIUM 5.8 mmol/L (3.5-5.1); SODIUM 123 mmol/L (136-145)
[2023-01-27] MEDS: ALBUTEROL SO4 0.083% IH SOL 2.5 MG/3 ML VIAL.NEB. NEB SCH ×4 (07:40→20:17)
[2023-01-27] MEDS ORDERED: DEXTROSE 10%-WATER - 1,000 ML IV SCH (07:45)
[2023-01-27 07:51] LABS: CALCIUM 7.4 mg/dL (8.5-10.1)
[2023-01-27 07:52] LABS: ALBUMIN 1.2 g/dl (3.4-5.0); ANION GAP 11 MMOL/L (8-16); BLOOD UREA NITROGEN 85.4 mg/dL (7-18); CO2 12 mmol/L (21-32); GLUCOSE,RANDOM 92 mg/dL (74-106)
[2023-01-27 07:55] LABS: CREATININE 4.2 mg/dL (0.55-1.3); SGOT/AST 86 U/L (15-37); SGPT/ALT 21 U/L (13-61)
[2023-01-27 07:56] LABS: BILIRUBIN,TOTAL 0.5 mg/dL (0.2-1); TOT PROT 4.6 g/dl (6.4-8.2)
[2023-01-27 07:58] LABS: ALK PHOS 80 U/L (45-117)
[2023-01-27 08:27] LABS: PHOSPHOROUS 9.1 mg/dL (2.5-4.9)
[2023-01-27] MEDS: FAMOTIDINE 20 MG/50 ML IVPB 20 MG/50 ML MG IVPB SCH (09:07)
[2023-01-27] MEDS: MEMANTINE HCL 5 MG TABLET (UD) NGT SCH ×2 (09:07→21:07)
[2023-01-27] MEDS: SODIUM ZIRCONIUM CYCLOSILICATE (LOKELMA) 5 GM PACKET PO SCH (09:07)
[2023-01-27] MEDS: POLYETHYLENE GLYCOL (HEALTHYLAX) 3350 17 GM PACKET NGT SCH ×2 (09:07→21:07)
[2023-01-27] MEDS: CEFEPIME 1 GM in DEXTROSE 5%-WATER 100 ML IVPB SCH ×2 (09:08→21:10)
[2023-01-27] MEDS: THIAMINE HCL 200 MG/2 ML VIAL IVPB SCH (09:10)
[2023-01-27] MEDS ORDERED: VASOPRESSIN 20 UNITS/ML VIAL IV ONE (09:32)
[2023-01-27] MEDS: VASOPRESSIN 40 UNITS/100 ML BAG IV SCH (09:38)
[2023-01-27] MEDS ORDERED: [UNRECOGNIZED DRUG - OTHER] IV SCH (10:01)
[2023-01-27] MEDS ORDERED: LACTATED RINGERS IV SCH (10:01)
[2023-01-27] MEDS ORDERED: DEXTROSE IV SCH (10:01)
[2023-01-27] MEDS ORDERED: DEXTROSE 5%-LACTATED RINGERS 1,000 ML IV SCH (10:15)
[2023-01-27] MEDS: VALPROATE SODIUM INJECTION 500 MG in SODIUM CHLORIDE 50 ML IVPB SCH ×2 (11:41→22:20)
[2023-01-27] MEDS ORDERED: LORazepam 2 MG/ML SDV VIAL IVPUSH ONE (11:48)
[2023-01-27] MEDS ORDERED: SODIUM CHLORIDE 250 ML IV PRN (16:00)
[2023-01-27] MEDS: ALBUMIN HUMAN 25% 12.5 GM/50 ML VIAL IV SCH ×4 (17:03→17:10)
[2023-01-27] MEDS: SENNOSIDES 8.8 MG/5 ML SYRUP GT SCH (21:07)
[2023-01-27] MEDS: ATORVASTATIN CA 20 MG TABLET (FP) NGT SCH (21:07)
[2023-01-27] MEDS: CHLORHEXIDINE GLUCONATE 4% CLEANSER FOR DECOLONIZATION TP SCH (21:07)
[2023-01-28] MEDS: VASOPRESSIN 40 UNITS/100 ML BAG IV SCH ×2 (01:11→09:55)
[2023-01-28] MEDS: PROPOFOL 1,000,000 MCG/100 ML VIAL IVPB SCH ×3 (01:14→22:50)
[2023-01-28] MEDS: FENTANYL NS IVPB 500 MCG/100 ML BAG IVPB SCH ×4 (01:33→16:58)
[2023-01-28] MEDS: HYDROCORTISONE SOD SUCCINATE 100 MG/2 ML VIAL IVPUSH SCH ×3 (01:44→17:37)
[2023-01-28] MEDS: NOREPINEPHRINE BITARTRATE/D5W 8 MG/250 ML BAG IVPB SCH ×2 (05:42→16:58)
[2023-01-28 07:09] LABS: HEMATOCRIT 14.8 % (35.4-49); MCH 27.8 pg (25.7-33.7); MCHC 32.3 g/dl (32.0-35.9); MEAN CELL VOLUME 86.1 fl (80-96); RBC 1.72 M/mm3 (4.00-5.60); RDW 23.3 % (11.9-15.9); WHITE BLOOD COUNT 18.3 K/mm3 (4.0-10.0)
[2023-01-28 07:18] LABS: HEMOGLOBIN 4.8 GM/dL (11.7-16.9); PLATELET COUNT 32 10^3/uL (134-434)
[2023-01-28 07:33] LABS: CHLORIDE 102 mmol/L (98-107); SODIUM 126 mmol/L (136-145)
[2023-01-28 07:37] LABS: CALCIUM 7.8 mg/dL (8.5-10.1)
[2023-01-28 07:38] LABS: BLOOD UREA NITROGEN 87.6 mg/dL (7-18); CO2 13 mmol/L (21-32); GLUCOSE,RANDOM 102 mg/dL (74-106); MAGNESIUM 2.2 mg/dL (1.8-2.4)
[2023-01-28 07:41] LABS: CREATININE 4.1 mg/dL (0.55-1.3)
[2023-01-28 07:47] LABS: ANION GAP 11 MMOL/L (8-16); POTASSIUM 6.2 mmol/L (3.5-5.1)
[2023-01-28 08:10] LABS: PHOSPHOROUS 8.6 mg/dL (2.5-4.9)
[2023-01-28] MEDS: ALBUTEROL SO4 0.083% IH SOL 2.5 MG/3 ML VIAL.NEB. NEB SCH ×3 (08:27→16:21)
[2023-01-28] MEDS: MEMANTINE HCL 5 MG TABLET (UD) NGT SCH ×2 (09:33→21:07)
[2023-01-28] MEDS: SODIUM ZIRCONIUM CYCLOSILICATE (LOKELMA) 5 GM PACKET PO SCH (09:34)
[2023-01-28] MEDS: POLYETHYLENE GLYCOL (HEALTHYLAX) 3350 17 GM PACKET NGT SCH ×2 (09:34→21:05)
[2023-01-28] MEDS: VALPROATE SODIUM INJECTION 500 MG in SODIUM CHLORIDE 50 ML IVPB SCH ×2 (09:36→21:46)
[2023-01-28] MEDS: FAMOTIDINE 20 MG/50 ML IVPB 20 MG/50 ML MG IVPB SCH (09:36)
[2023-01-28] MEDS ORDERED: CALCIUM GLUCONATE 10% - 1,000 MG/10 ML VIAL IVPB STA (09:41)
[2023-01-28] MEDS ORDERED: CEFEPIME 1 GM in DEXTROSE 5%-WATER 100 ML IVPB SCH (10:00)
[2023-01-28] MEDS ORDERED: DEXTROSE 50%-WATER - 25 GM/50 ML VIAL IVPUSH STA (10:04)
[2023-01-28] MEDS ORDERED: INSULIN REGULAR HUMAN 100 UNITS/ML *VIAL IVPUSH STA (10:05)
[2023-01-28] MEDS ORDERED: DEXTROSE 50%-WATER 25 GM/50 ML DISP.SYRIN ONE ×3 (10:14→19:55)
[2023-01-28] MEDS ORDERED: SODIUM BICARBONATE 8.4% 50 MEQ/50 ML DISP.SYRIN IVPUSH ONE (10:15)
[2023-01-28] MEDS: CEFEPIME 1 GM in DEXTROSE 5%-WATER 100 ML IVPB SCH ×2 (10:17→21:06)
[2023-01-28 10:35] LABS: HEMATOCRIT 13.3 % (35.4-49); MCH 28.1 pg (25.7-33.7); MCHC 32.6 g/dl (32.0-35.9); MEAN CELL VOLUME 86.1 fl (80-96); RBC 1.55 M/mm3 (4.00-5.60); RDW 23.1 % (11.9-15.9); WHITE BLOOD COUNT 18.3 K/mm3 (4.0-10.0)
[2023-01-28] MEDS: THIAMINE HCL 200 MG/2 ML VIAL IVPB SCH (10:44)
[2023-01-28 10:46] LABS: HEMOGLOBIN 4.4 GM/dL (11.7-16.9); PLATELET COUNT 29 10^3/uL (134-434)
[2023-01-28 11:01] LABS: ARTERIAL BLD GAS O2 SATURATION 99.2 % (95-98); ARTERIAL BLOOD GAS PO2 285.3 mmHg (80-100)
[2023-01-28 11:03] LABS: ALLENS TEST POSITIVE
[2023-01-28 11:06] LABS: ARTERIAL BLOOD GAS pH 6.923 (7.350-7.450)
[2023-01-28 11:53] LABS: ANISOCYTOSIS 2+; MACROCYTOSIS 0
[2023-01-28] MEDS: DEXTROSE 50%-WATER - 25 GM/50 ML VIAL IVPUSH PRN ×2 (16:54→19:58)
[2023-01-28] MEDS: ATORVASTATIN CA 20 MG TABLET (FP) NGT SCH (21:06)
[2023-01-28] MEDS: CHLORHEXIDINE GLUCONATE 4% CLEANSER FOR DECOLONIZATION TP SCH (21:06)
[2023-01-28] MEDS: SENNOSIDES 8.8 MG/5 ML SYRUP GT SCH (21:07)
[2023-01-29] MEDS ORDERED: DEXTROSE 50%-WATER 25 GM/50 ML DISP.SYRIN ONE ×4 (00:17→09:02)
[2023-01-29] MEDS: NOREPINEPHRINE BITARTRATE/D5W 8 MG/250 ML BAG IVPB SCH ×2 (00:19→06:42)
[2023-01-29] MEDS: DEXTROSE 50%-WATER - 25 GM/50 ML VIAL IVPUSH PRN ×3 (00:23→08:50)
[2023-01-29] MEDS: FENTANYL NS IVPB 500 MCG/100 ML BAG IVPB SCH (01:16)
[2023-01-29] MEDS: HYDROCORTISONE SOD SUCCINATE 100 MG/2 ML VIAL IVPUSH SCH ×2 (01:18→10:23)
[2023-01-29] MEDS: VASOPRESSIN 40 UNITS/100 ML BAG IV SCH ×2 (04:01→09:24)
[2023-01-29 07:34] LABS: HEMATOCRIT 16.7 % (35.4-49); MCH 30.6 pg (25.7-33.7); MCHC 33.9 g/dl (32.0-35.9); MEAN CELL VOLUME 90.1 fl (80-96); MEAN PLT VOLUME 9.7 fl (7.5-11.1); RBC 1.85 M/mm3 (4.00-5.60); RDW 17.9 % (11.9-15.9); WHITE BLOOD COUNT 14.6 K/mm3 (4.0-10.0)
[2023-01-29] MEDS ORDERED: PHENYLEPHRINE HCL 10 MG/1 ML SINGLE DOSE VIAL ONE ×2 (07:55→08:23)
[2023-01-29 07:56] LABS: CHLORIDE 102 mmol/L (98-107); SODIUM 125 mmol/L (136-145)
[2023-01-29 08:00] LABS: BLOOD UREA NITROGEN 86.8 mg/dL (7-18); CO2 12 mmol/L (21-32)
[2023-01-29] MEDS ORDERED: PHENYLEPHRINE NS PREMIX 50,000 MCG/500 ML BAG CVP SCH (08:00)
[2023-01-29] MEDS ORDERED: SODIUM BICARBONATE 8.4% - 150 MEQ in DEXTROSE 5%-WATER - 950 ML IVPB SCH (08:00)
[2023-01-29 08:01] LABS: GLUCOSE,RANDOM 116 mg/dL (74-106); MAGNESIUM 2.5 mg/dL (1.8-2.4)
[2023-01-29 08:03] LABS: BILIRUBIN,DIRECT 0.5 mg/dL (0.0-0.2); CREATININE 4.3 mg/dL (0.55-1.3); SGOT/AST 253 U/L (15-37)
[2023-01-29 08:04] LABS: TOT PROT 3.3 g/dl (6.4-8.2)
[2023-01-29 08:06] LABS: ALK PHOS 90 U/L (45-117)
[2023-01-29 08:22] LABS: ANION GAP 11 MMOL/L (8-16); BILIRUBIN,TOTAL 0.8 mg/dL (0.2-1); POTASSIUM 7.5 mmol/L (3.5-5.1); SGPT/ALT 40 U/L (13-61)
[2023-01-29 08:34] LABS: HEMOGLOBIN 5.7 GM/dL (11.7-16.9); PLATELET COUNT 30 10^3/uL (134-434)
[2023-01-29] MEDS ORDERED: SODIUM BICARBONATE 8.4% 50 MEQ/50 ML DISP.SYRIN ONE (08:39)
[2023-01-29] MEDS ORDERED: SODIUM BICARBONATE 8.4% 50 MEQ/50 ML DISP.SYRIN IVPUSH STA ×2 (08:40→08:41)
[2023-01-29] MEDS ORDERED: INSULIN REGULAR HUMAN 100 UNITS/ML *VIAL IVPUSH STA (08:42)
[2023-01-29] MEDS ORDERED: DEXTROSE 50%-WATER - 25 GM/50 ML VIAL IVPUSH STA (08:42)
[2023-01-29] MEDS ORDERED: CALCIUM GLUCONATE 10% - 1,000 MG/10 ML VIAL IVPB STA (08:43)
[2023-01-29 09:20] VITALS: TEMP 94.5
[2023-01-29] MEDS: ALBUMIN HUMAN 25% 12.5 GM/50 ML VIAL IV SCH ×4 (09:20→10:18)
[2023-01-29] MEDS: VALPROATE SODIUM INJECTION 500 MG in SODIUM CHLORIDE 50 ML IVPB SCH (09:22)
[2023-01-29] MEDS: POLYETHYLENE GLYCOL (HEALTHYLAX) 3350 17 GM PACKET NGT SCH (09:25)
[2023-01-29] MEDS: PROPOFOL 1,000,000 MCG/100 ML VIAL IVPB SCH (09:25)
[2023-01-29] MEDS: MEMANTINE HCL 5 MG TABLET (UD) NGT SCH (09:26)
[2023-01-29] MEDS: SODIUM ZIRCONIUM CYCLOSILICATE (LOKELMA) 5 GM PACKET PO SCH (09:26)
[2023-01-29 10:13] VITALS: BP 56/23; PULSE 68; RESP 15
[2023-01-29] MEDS: CEFEPIME 1 GM in DEXTROSE 5%-WATER 100 ML IVPB SCH (10:22)
[2023-01-29 11:14] LABS: ARTERIAL BLD GAS O2 SATURATION 98.3 % (95-98); ARTERIAL BLOOD GAS BASE EXCESS -23.5 mmol/L (-2-2); ARTERIAL BLOOD GAS PO2 217.1 mmHg (80-100); ARTERIAL BLOOD GAS pH 6.798 (7.350-7.450)
[2023-01-29] MEDS: FAMOTIDINE 20 MG/50 ML IVPB 20 MG/50 ML MG IVPB SCH (11:14)
[2023-01-29] MEDS ORDERED: EPINEPHrine 1:1,000 1,000 MCG in DEXTROSE 5%-WATER - 249 ML IVPB SCH (11:15)
[2023-01-29 11:46] LABS: CHLORIDE 96 mmol/L (98-107); SODIUM 123 mmol/L (136-145)
[2023-01-29 11:48] LABS: CALCIUM 7.3 mg/dL (8.5-10.1)
[2023-01-29 11:49] LABS: BLOOD UREA NITROGEN 80.4 mg/dL (7-18); CO2 11 mmol/L (21-32); GLUCOSE,RANDOM 233 mg/dL (74-106)
[2023-01-29 11:52] LABS: CREATININE 4.3 mg/dL (0.55-1.3); SGPT/ALT 312 U/L (13-61)
[2023-01-29 11:53] LABS: BILIRUBIN,TOTAL 1.7 mg/dL (0.2-1)
[2023-01-29 11:54] LABS: TOT PROT 3.5 g/dl (6.4-8.2)
[2023-01-29 11:55] LABS: ALK PHOS 60 U/L (45-117)
[2023-01-29 12:02] LABS: ANION GAP 16 MMOL/L (8-16); POTASSIUM 8.4 mmol/L (3.5-5.1); SGOT/AST 1928 U/L (15-37)
== END 2023-01-29 11:20 | disposition expired | DRG 207 ==
LOC: JER 15:16 → JERBED 18:10 → J4W 20:37 → J2W 01-05 02:01 → JICU 01-18 05:37
PROVIDERS: ADMIT Internal Medicine; ATTEND Internal Medicine
PROC: 0W9930Z Drainage of Right Pleural Cavity with Drainage Device, Percutaneous Approach (ICD-10-PCS; 2023-01-04)
PROC: 3E0L3GC Introduction of Other Therapeutic Substance into Pleural Cavity, Percutaneous Approach (ICD-10-PCS; 2023-01-04)
PROC: 05HM33Z Insertion of Infusion Device into Right Internal Jugular Vein, Percutaneous Approach (ICD-10-PCS; principal; 2023-01-17)
PROC: B543ZZA Ultrasonography of Right Jugular Veins, Guidance (ICD-10-PCS; 2023-01-17)
PROC: 5A1955Z Respiratory Ventilation, Greater than 96 Consecutive Hours (ICD-10-PCS; 2023-01-18)
PROC: 0BH17EZ Insertion of Endotracheal Airway into Trachea, Via Natural or Artificial Opening (ICD-10-PCS; 2023-01-18)
PROC: 05HN33Z Insertion of Infusion Device into Left Internal Jugular Vein, Percutaneous Approach (ICD-10-PCS; 2023-01-24)
PROC: B544ZZA Ultrasonography of Left Jugular Veins, Guidance (ICD-10-PCS; 2023-01-24)
PROC: 30233R1 Transfusion of Nonautologous Platelets into Peripheral Vein, Percutaneous Approach (ICD-10-PCS; 2023-01-25)
PROC: 30233N1 Transfusion of Nonautologous Red Blood Cells into Peripheral Vein, Percutaneous Approach (ICD-10-PCS; 2023-01-25)
PROC: 05H533Z Insertion of Infusion Device into Right Subclavian Vein, Percutaneous Approach (ICD-10-PCS; 2023-01-27)
DX: J13 Pneumonia due to Streptococcus pneumoniae (principal); J86.9 Pyothorax without fistula; A41.89 Other specified sepsis; J96.01 Acute respiratory failure with hypoxia; R65.21 Severe sepsis with septic shock; E43 Unspecified severe protein-calorie malnutrition; J98.11 Atelectasis; J90 Pleural effusion, not elsewhere classified; E87.20 Acidosis, unspecified; N17.9 Acute kidney failure, unspecified; G40.909 Epilepsy, unspecified, not intractable, without status epilepticus; E78.5 Hyperlipidemia, unspecified; F31.9 Bipolar disorder, unspecified; D50.9 Iron deficiency anemia, unspecified; F01.50 Vascular dementia, unspecified severity, without behavioral disturbance, psychotic disturbance, mood disturbance, and anxiety; D69.6 Thrombocytopenia, unspecified; E87.70 Fluid overload, unspecified; E87.5 Hyperkalemia; E87.6 Hypokalemia; F10.20 Alcohol dependence, uncomplicated; F17.210 Nicotine dependence, cigarettes, uncomplicated; I25.10 Atherosclerotic heart disease of native coronary artery without angina pectoris; K21.9 Gastro-esophageal reflux disease without esophagitis; Z95.5 Presence of coronary angioplasty implant and graft; Z68.24 Body mass index [BMI] 24.0-24.9, adult
CPT/HCPCS: 0241U-QW; 31500; 32557; 36415; 36430; 36511; 36600; 71045-TC-FY; 71046-TC-FY; 71250-TC; 74018-TC-FY; 74176-TC; 76775-TC; 80048; 80053; 80076; 81003; 82272; 82550; 82553; 82570; 82607; 82728; 82746; 82803; 82962; 83540; 83550; 83605; 83615; 83735; 84100; 84300; 84484; 85025; 85027; 85379; 85384; 85610; 85730; 86738; 86803; 86850; 86900; 86901; 86922; 87040; 87070; 87075; 87076; 87077; 87081; 87086; 87102; 87116; 87205; 87206; 87210; 87350; 87899; 93005; 93010; 93306-TC; 94002; 94640; 99285-25; J2997; J3490; P9034; P9038; P9047; P9058